=== PATIENT | male | born 1930 | race Caucasian/White ===

== ENCOUNTER 2016-10-04 07:13 | Outpatient (CLI) | payer MEDICARE, OTHER ==
[2016-06-13 09:17] VITALS: BP 165/72
[2016-10-04 08:12] LABS: eGFR (African) > 60; eGFR (Non-African) > 60
== END 2016-10-04 07:20 ==
LOC: LAB 07:13
PROVIDERS: ATTEND Family Medicine
DX: E11.9 Type 2 diabetes mellitus without complications (principal)
CPT/HCPCS: 36415; 80053; 82043; 83036

== ENCOUNTER 2017-01-20 07:40 | Outpatient (CLI) | payer MEDICARE, OTHER ==
[2016-06-13 09:17] VITALS: BP 165/72
[2017-01-20 08:51] LABS: eGFR (African) > 60; eGFR (Non-African) > 60
== END 2017-01-20 07:42 ==
LOC: LAB 07:40
PROVIDERS: ATTEND Family Medicine
DX: E11.9 Type 2 diabetes mellitus without complications (principal)
CPT/HCPCS: 36415; 80053; 80061; 83036

== ENCOUNTER 2017-02-01 08:07 | Outpatient (CLI) | payer MEDICARE, OTHER ==
[2016-06-13 09:17] VITALS: BP 165/72
[2017-02-01 08:37] LABS: BASOPHILS % 0.8 (0.0-1.5); MEAN CORPUSCULAR VOLUME 97.6 fl (80.0-100.0); MONOCYTES % 8.4 % (0.0-11.0); NEUTROPHILS # 5.6 # k/uL (1.4-7.7)
[2017-02-01 08:50] LABS: eGFR (African) > 60; eGFR (Non-African) > 60
== END 2017-02-01 08:10 ==
LOC: LAB 08:07
PROVIDERS: ATTEND Nurse Practitioner
DX: I10 Essential (primary) hypertension (principal); I25.118 Atherosclerotic heart disease of native coronary artery with other forms of angina pectoris; I48.0 Paroxysmal atrial fibrillation; I50.22 Chronic systolic (congestive) heart failure; R06.02 Shortness of breath; R07.2 Precordial pain; R60.0 Localized edema
CPT/HCPCS: 36415; 80053; 80061; 83880; 84443; 85025

== ENCOUNTER 2017-02-24 06:35 | Emergency (ER) | payer MEDICARE, OTHER ==
[2017-02-24] MEDS ORDERED: AMOXICILLIN 500 MG CAPSULE PO ONE (07:15)
[2017-02-24] MEDS ORDERED: oxyCODONE/ACETAMINOPHEN 5/325 TABLET PO ONE ×2 (07:15→07:17)
[2017-02-24] MEDS ORDERED: ONDANSETRON HCL/PF 4 MG/ 2ML VIAL ONE (07:17)
[2017-02-24] MEDS ORDERED: HALOPERIDOL LACTATE 5 MG/ML VIAL IM ONE (07:18)
[2017-02-24] MEDS: ONDANSETRON HCL/PF 4 MG/ 2ML VIAL IM ONE (07:22)
[2017-02-24] MEDS: HALOPERIDOL LACTATE 5 MG/ML VIAL IM ONE (07:22)
--- NOTE | 2017-02-24 09:30 | ED Physician Documentation ---
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 denies: weakness, numbness, neck pain, ankle swelling , leg swelling, rash EYES/ENT: none CVS/RESP: none GI/: denies: problems urinating, nausea, vomiting - PAST HX Past History: none Immunizations: referred to PCP Allergies/Adverse Reactions: Allergies Allergy/AdvReac Type Severity Reaction Status Date / Time acetaminophen Allergy Unknown Verified 02/24/17 07:30 allopurinol [From Zyloprim] Allergy Unknown Verified 02/24/17 07:30 alprazolam Allergy Unknown Verified 02/24/17 07:30 amoxicillin Allergy Unknown Verified 02/24/17 07:30 atorvastatin calcium Allergy Unknown Verified 02/24/17 07:30 [From Lipitor] azelastine Allergy Unknown Verified 02/24/17 07:30 bupropion HCl Allergy Unknown Verified 02/24/17 07:30 [From Wellbutrin] cephalexin Allergy Unknown Verified 02/24/17 07:30 clindamycin Allergy Unknown Verified 02/24/17 07:30 clonazepam Allergy Unknown Verified 02/24/17 07:30 clopidogrel bisulfate Allergy Unknown Verified 02/24/17 07:30 [From Plavix] codeine Allergy Unknown Verified 02/24/17 07:30 cortisone Allergy Unknown Verified 02/24/17 07:30 dexlansoprazole Allergy Unknown Verified 02/24/17 07:30 [From Dexilant] dextromethorphan HBr Allergy Unknown Verified 02/24/17 07:30 [From Guiatuss] diphenhydramine HCl Allergy Unknown Verified 02/24/17 07:30 [From Tylenol PM] divalproex sodium Allergy Unknown Verified 02/24/17 07:30 [From Depakote] duloxetine HCl Allergy Unknown Verified 02/24/17 07:30 [From Cymbalta] escitalopram oxalate Allergy Unknown Verified 02/24/17 07:30 [From Lexapro] esomeprazole magnesium Allergy Unknown Verified 02/24/17 07:30 [From Nexium] fenofibrate nanocrystallized Allergy Unknown Verified 02/24/17 07:30 [From Tricor] fenofibrate,micronized Allergy Unknown Verified 02/24/17 07:30 [From Tricor] fentanyl Allergy Unknown Verified 02/24/17 07:30 fluoxetine HCl [From Prozac] Allergy Unknown Verified 02/24/17 07:30 gabapentin Allergy Unknown Verified 02/24/17 07:30 guaifenesin [From Guiatuss] Allergy Unknown Verified 02/24/17 07:30 hydrochlorothiazide Allergy Unknown Verified 02/24/17 07:30 [From Dyazide] hydrocodone Allergy Unknown Verified 02/24/17 07:30 hydrocodone bitartrate Allergy Unknown Verified 02/24/17 07:30 [From Vicodin] hydromorphone Allergy Unknown Verified 02/24/17 07:30 ibuprofen Allergy Unknown Verified 02/24/17 07:30 meloxicam [From Mobic] Allergy Unknown Verified 02/24/17 07:30 meperidine HCl [From Demerol] Allergy Unknown Verified 02/24/17 07:30 metformin HCl Allergy Unknown Verified 02/24/17 07:30 [From Glucophage] metolazone Allergy Unknown Verified 02/24/17 07:30 morphine Allergy Unknown Verified 02/24/17 07:30 naproxen Allergy Unknown Verified 02/24/17 07:30 naproxen sodium [From Aleve] Allergy Unknown Verified 02/24/17 07:30 nebivolol HCl [From Bystolic] Allergy Unknown Verified 02/24/17 07:30 omeprazole Allergy Unknown Verified 02/24/17 07:30 omeprazole magnesium Allergy Unknown Verified 02/24/17 07:30 [From Prilosec] oxycodone Allergy Unknown Verified 02/24/17 07:30 oxycodone HCl [From Percocet] Allergy Unknown Verified 02/24/17 07:30 paroxetine HCl [From Paxil] Allergy Unknown Verified 02/24/17 07:30 pioglitazone HCl [From Actos] Allergy Unknown Verified 02/24/17 07:30 prasugrel HCl [From Effient] Allergy Unknown Verified 02/24/17 07:30 pravastatin sodium Allergy Unknown Verified 02/24/17 07:30 [From Pravachol] prednisone Allergy Unknown Verified 02/24/17 07:30 pregabalin [From Lyrica] Allergy Unknown Verified 02/24/17 07:30 propoxyphene HCl Allergy Unknown Verified 02/24/17 07:30 [From Darvon] pseudoephedrine HCl Allergy Unknown Verified 02/24/17 07:30 [From Guiatuss] rabeprazole sodium Allergy Unknown Verified 02/24/17 07:30 [From Aciphex] ramipril [From Altace] Allergy Unknown Verified 02/24/17 07:30 rivaroxaban [From Xarelto] Allergy Unknown Verified 02/24/17 07:30 rofecoxib [From Vioxx] Allergy Unknown Verified 02/24/17 07:30 rosiglitazone maleate Allergy Unknown Verified 02/24/17 07:30 [From Avandia] rosuvastatin calcium Allergy Unknown Verified 02/24/17 07:30 [From Crestor] salsalate Allergy Unknown Verified 02/24/17 07:30 sertraline HCl [From Zoloft] Allergy Unknown Verified 02/24/17 07:30 sibutramine HCl monohydrate Allergy Unknown Verified 02/24/17 07:30 [From Meridia] silver sulfadiazine Allergy Unknown Verified 02/24/17 07:30 [From Silvadene] synephrine Allergy Unknown Verified 02/24/17 07:30 tamsulosin Allergy Unknown Verified 02/24/17 07:30 ticagrelor Allergy Unknown Verified 02/24/17 07:30 ticlopidine HCl [From Ticlid] Allergy Unknown Verified 02/24/17 07:30 torsemide Allergy Unknown Verified 02/24/17 07:30 tramadol HCl [From Ultram] Allergy Unknown Verified 02/24/17 07:30 triamcinolone Allergy Unknown Verified 02/24/17 07:30 triamterene [From Dyazide] Allergy Unknown Verified 02/24/17 07:30 vardenafil HCl [From Levitra] Allergy Unknown Verified 02/24/17 07:30 venlafaxine HCl Allergy Unknown Verified 02/24/17 07:30 [From Effexor] warfarin Allergy Unknown Verified 02/24/17 07:30 warfarin sodium Allergy Unknown Verified 02/24/17 07:30 [From Coumadin] zanamivir Allergy Unknown Verified 02/24/17 07:30 [From Relenza Diskhaler] celecoxib [From Celebrex] Allergy Verified 02/24/17 07:30 clopidogrel Allergy Verified 02/24/17 07:30 hydralazine Allergy Verified 02/24/17 07:30 Penicillins Allergy Verified 02/24/17 07:30 propoxyphene Allergy Verified 02/24/17 07:30 Sulfa (Sulfonamide Allergy Verified 02/24/17 07:30 Antibiotics) tramadol Allergy Verified 02/24/17 07:30 valdecoxib Allergy Verified 02/24/17 07:30 atorvastatin AdvReac Muscle Pain Verified 02/24/17 07:30 metformin AdvReac Muscle Pain Verified 02/24/17 07:30 pravastatin AdvReac Hives Verified 02/24/17 07:30 simvastatin AdvReac Muscle Pain Verified 02/24/17 07:30 ticlopidine AdvReac Hives Verified 02/24/17 07:30 metolozone Allergy Severe mental Uncoded 06/08/16 17:30 confusion Home Medications: Ambulatory Orders Medication Instructions Recorded Acetaminophen [Extra Strength 500 mg PO BID 11/26/15 Non-Aspirin] Losartan Potassium 100 mg PO DAILY 11/26/15 Multivit-Min/FA/Lycopene/Lut 1 tab PO DAILY 11/26/15 [Centrum Silver Tablet] Psyllium Seed [Metamucil] 1 tsp PO BID 11/26/15 Sennosides [Senokotxtra] 58.6 mg PO BID 11/26/15 Thiamine HCl [B-1] 1 tab PO DAILY 11/26/15 Apixaban [Eliquis] 2.5 mg PO BID tablet 12/30/15 Ergocalciferol (Vitamin D2) 1,000 unit PO BID #10 tablet 12/30/15 [Vitamin D-2] Potassium Chloride 10 meq PO 6X day u2 03/28/16 Torsemide 100 mg PO BID u2 03/28/16 Cefuroxime Axetil [Ceftin] 500 mg PO BID #10 tablet 06/13/16 Isosorbide Mononitrate [Imdur] 30 mg PO PM 02/24/17 Isosorbide Mononitrate [Imdur] 60 mg PO AM 02/24/17 - SOCIAL HX Smoking History: non-smoker Alcohol Use: none Drug Use: none - FAMILY HX Family History: no significant history - VITAL SIGNS Vital Signs: Vital Signs Temp Pulse Resp BP Pulse Ox 97.1 F L 78 22 140/68 93 02/24/17 06:35 02/24/17 06:35 02/24/17 06:35 02/24/17 06:35 02/24/17 06:35 - REVIEWED ASSESSMENTS Nursing Assessment Reviewed: Yes Vitals Reviewed: Yes Progress - Results/Orders Results/Orders: x-rays of L-spine, pelvis and bilateral hips ordered - Progress Progress: pt. given 10 mg haldol im and zofran 8 mg im in er Critical Care Note - Critical Care Note Total Time (mins): 0 ED Results Lab/Radiology - Lab Results Lab Results: none ordered - Radiology Radiology Impressions: x-rays of L-spine and pelvis/hips neg for fx - Orders Orders: ED Orders Category Date Time Status BILAT HIPS 2V (W/PEL IF DONE) [RAD] Stat Exams 02/24/17 07:15 Ordered L SPINE 2 OR 3 VIEWS [RAD] Stat Exams 02/24/17 07:15 Ordered Amoxicillin [Amoxil] Med 02/24/17 07:15 Discontinued 500 mg PO NOW ONE Haloperidol Lactate [Haldol] Med 02/24/17 07:18 Discontinued 10 mg IM .STK-MED ONE Haloperidol Lactate [Haldol] Med 02/24/17 07:15 Discontinued 10 mg IM NOW ONE Ondansetron HCl/Pf [Zofran 4 mg/2 ml] Med 02/24/17 07:17 Discontinued 8 mg .ROUTE .STK-MED ONE Ondansetron HCl/Pf [Zofran 4 mg/2 ml] Med 02/24/17 07:15 Discontinued 8 mg IM NOW ONE oxyCODONE HCL/ACETAMINOPHEN [Percocet 5-325 mg Tablet] Med 02/24/17 07:17 Discontinued 1 each PO .STK-MED ONE oxyCODONE HCL/ACETAMINOPHEN [Percocet 5-325 mg Tablet] Med 02/24/17 07:15 Discontinued 1 each PO NOW ONE Fall Physical Exam - Physical Exam General Appearance: alert, moderate distress Head: non-tender, no obvious injury. No: raccoon eyes, Chapman's sign Neck: non-tender Eye: LUPILLO, EOMI, lids & conjunct. nml ENT: nml external inspection, no dental injury Resp/CVS: chest non-tender, no ecchymosis, breath sounds nml, no resp. distress , heart sounds nml Abdomen: soft, no organomegaly, normal bowel sounds, no abdominal bruit, no distension, non-tender Neuro: oriented x3, CN's nml as tested, sensation nml, motor nml, mood/affect nml, potash flaker nml, reflexes nml, potash flaker symmetrical, other (strength and sensation intact lower extremities) Skin: other (cellulitis bilateral legs) Back: no CVA tenderness, other (tenderness L5-21 bilaterally) Extremities: pelvis stable Joint: nml ROM. No: ligamentous instability Discharge Clincal Impression: Lumbar strain Qualifiers: Encounter type: initial encounter Qualified Code(s): S39.012A - Strain of muscle, fascia and tendon of lower back, initial encounter Cellulitis Qualifiers: Site of cellulitis: extremity Site of cellulitis of extremity: lower extremity Laterality: unspecified laterality Qualified Code(s): L03.119 - Cellulitis of unspecified part of limb Referrals: Tolu Serrano MD [Primary Care Provider] - 2 Days Home Medications: Ambulatory Orders Acetaminophen [Extra Strength Non-Aspirin] 500 mg PO BID 11/26/15 Losartan Potassium 100 mg PO DAILY 11/26/15 Multivit-Min/FA/Lycopene/Lut [Centrum Silver Tablet] 1 tab PO DAILY 11/26/15 Psyllium Seed [Metamucil] 1 tsp PO BID 11/26/15 Sennosides [Senokotxtra] 58.6 mg PO BID 11/26/15 Thiamine HCl [B-1] 1 tab PO DAILY 11/26/15 Apixaban [Eliquis] 2.5 mg PO BID tablet 12/30/15 Ergocalciferol (Vitamin D2) [Vitamin D-2] 1,000 unit PO BID #10 tablet 12/30/15 Potassium Chloride 10 meq PO 6X day u2 03/28/16 Torsemide 100 mg PO BID u2 03/28/16 Cefuroxime Axetil [Ceftin] 500 mg PO BID #10 tablet 06/13/16 Isosorbide Mononitrate [Imdur] 30 mg PO PM 02/24/17 Isosorbide Mononitrate [Imdur] 60 mg PO AM 02/24/17 Comments: discharged in stable condition with script for parafon forte dsc 500 mg 1 p.o. qid and doxycycline 100 mg #30 1 p.o. bid Condition: Stable Disposition: 01 HOME, SELF-CARE Decision to Admit: NO Decision Time: 09:10
[2017-02-24 10:09] VITALS: BP 130/68
--- NOTE | 2017-02-24 14:10 | Diagnostic Imaging Report ---
[place] [facility] [address] [facility].[address] [address] Report Submission Date: Feb 24, 2017 8:54:36 AM CDT Patient Study Name: MADDI MARQUEZ Date: Feb 24, 2017 7:38:52 AM CDT Modality Type: CR Gender: M Description: SPINE : 32 Institution: [facility] Physician: [place] Lumbar spine -three views CLINICAL HISTORY: Fall. Back pain. FINDINGS: Examination lumbar spine in AP, lateral and lateral coned-down views demonstrates degenerative changes with narrowing of the disc spaces at every level except L3-4. There is degenerative anterolisthesis of L4 on L5 by 5 mm. There is slight retrolisthesis of L2 on L3. Dextroscoliosis is seen with the apex at L3. Pedicles are intact and the paravertebral soft tissues are within normal limits. IMPRESSION: Spondylosis and mild dextroscoliosis. No fracture. Electronically signed on Feb 24, 2017 8:54:36 AM CDT by: Marshall WEISS
--- NOTE | 2017-02-24 14:10 | Diagnostic Imaging Report ---
[facility] [address] [facility].[address] [address] Report Submission Date: Feb 24, 2017 8:52:51 AM CDT Patient Study Name: MADDI MARQUEZ Date: Feb 24, 2017 7:34:44 AM CDT Modality Type: CR Gender: M Description: PELVIS : 32 Institution: [facility] Physician [place] Pelvis and bilateral hips CLINICAL HISTORY: Fall today. Bilateral hip pain. FINDINGS: Examination of the pelvis in AP and bilateral hips in AP and frog-leg lateral views demonstrates degenerative changes in the hips with slight narrowing of the hip joint space bilaterally. Sacroiliac joints are symmetric. Degenerative changes are seen in the visualized lower lumbar vertebrae. There is no evident fracture and no lytic or blastic lesion. 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 No fracture. Electronically signed on Feb 24, 2017 8:52:51 AM CDT by: Marshall WEISS
== END 2017-02-24 09:45 | disposition home or self-care (01) ==
LOC: ED 06:35
DX: S39.012A Strain of muscle, fascia and tendon of lower back, initial encounter (principal); X58.XXXA Exposure to other specified factors, initial encounter; Y93.9 Activity, unspecified; Y99.9 Unspecified external cause status; L03.119 Cellulitis of unspecified part of limb
CPT/HCPCS: 72100; 73521; A9270; J1630; J2405; 96372; 99283; S1016

== ENCOUNTER 2017-02-24 11:46 | Emergency (ER) | payer MEDICARE, OTHER ==
[2017-02-24] MEDS: Lidocaine 1% 5ml(IM or SUTURE)(PAIN CLINIC) IJ ONE (12:40)
[2017-02-24] MEDS: methylPREDNISolone ACETATE 80 MG/ML VIAL IM ONE ×2 (12:40→12:42)
[2017-02-24] MEDS: DEXAMETHASONE SOD PHOS 4 MG/ML VIAL IM ONE (12:40)
[2017-02-24] MEDS: DEXAMETHASONE SOD PHOS 4 MG/ML VIAL ONE (12:42)
--- NOTE | 2017-02-24 13:12 | ED Physician Documentation ---
Lower Extremity Problem - HISTORIAN Historian: patient - HPI Stated Complaint: Right Knee Pain Chief Complaint: Lower Extremity Problem Additional Information: unasble to get off toilet at home, states right knee hurts, ambulating well around home and er Location of Injury: R knee Onset: minutes (30) Timing: still present Duration: sudden-Onset Recent Injury: No Where: home Severity: moderate Quality: pain Exacerbated By: other (squatting) Relieved By: positioning Associated Symptoms: denies: chest pain, shortness of breath, rapid heart rate, fainting Further Comments: no - ROS CONST: no problems MS/SKIN/LYMPH: none CVS/RESP: none GI/: none EYES/ENT: none NERUO/PSYCH: denies: headache, difficulty walking, dizziness, anxiety, depression - PAST HX Past History: other (see nurses notes) PE Risk Factors: other (weight) Surgeries/Procedures: other (see nurses notes) Immunizations: referred to PCP Allergies/Adverse Reactions: Allergies Allergy/AdvReac Type Severity Reaction Status Date / Time acetaminophen Allergy Unknown Verified 02/24/17 07:30 allopurinol [From Zyloprim] Allergy Unknown Verified 02/24/17 07:30 alprazolam Allergy Unknown Verified 02/24/17 07:30 amoxicillin Allergy Unknown Verified 02/24/17 07:30 atorvastatin calcium Allergy Unknown Verified 02/24/17 07:30 [From Lipitor] azelastine Allergy Unknown Verified 02/24/17 07:30 bupropion HCl Allergy Unknown Verified 02/24/17 07:30 [From Wellbutrin] cephalexin Allergy Unknown Verified 02/24/17 07:30 clindamycin Allergy Unknown Verified 02/24/17 07:30 clonazepam Allergy Unknown Verified 02/24/17 07:30 clopidogrel bisulfate Allergy Unknown Verified 02/24/17 07:30 [From Plavix] codeine Allergy Unknown Verified 02/24/17 07:30 cortisone Allergy Unknown Verified 02/24/17 07:30 dexlansoprazole Allergy Unknown Verified 02/24/17 07:30 [From Dexilant] dextromethorphan HBr Allergy Unknown Verified 02/24/17 07:30 [From Guiatuss] diphenhydramine HCl Allergy Unknown Verified 02/24/17 07:30 [From Tylenol PM] divalproex sodium Allergy Unknown Verified 02/24/17 07:30 [From Depakote] duloxetine HCl Allergy Unknown Verified 02/24/17 07:30 [From Cymbalta] escitalopram oxalate Allergy Unknown Verified 02/24/17 07:30 [From Lexapro] esomeprazole magnesium Allergy Unknown Verified 02/24/17 07:30 [From Nexium] fenofibrate nanocrystallized Allergy Unknown Verified 02/24/17 07:30 [From Tricor] fenofibrate,micronized Allergy Unknown Verified 02/24/17 07:30 [From Tricor] fentanyl Allergy Unknown Verified 02/24/17 07:30 fluoxetine HCl [From Prozac] Allergy Unknown Verified 02/24/17 07:30 gabapentin Allergy Unknown Verified 02/24/17 07:30 guaifenesin [From Guiatuss] Allergy Unknown Verified 02/24/17 07:30 hydrochlorothiazide Allergy Unknown Verified 02/24/17 07:30 [From Dyazide] hydrocodone Allergy Unknown Verified 02/24/17 07:30 hydrocodone bitartrate Allergy Unknown Verified 02/24/17 07:30 [From Vicodin] hydromorphone Allergy Unknown Verified 02/24/17 07:30 ibuprofen Allergy Unknown Verified 02/24/17 07:30 meloxicam [From Mobic] Allergy Unknown Verified 02/24/17 07:30 meperidine HCl [From Demerol] Allergy Unknown Verified 02/24/17 07:30 metformin HCl Allergy Unknown Verified 02/24/17 07:30 [From Glucophage] metolazone Allergy Unknown Verified 02/24/17 07:30 morphine Allergy Unknown Verified 02/24/17 07:30 naproxen Allergy Unknown Verified 02/24/17 07:30 naproxen sodium [From Aleve] Allergy Unknown Verified 02/24/17 07:30 nebivolol HCl [From Bystolic] Allergy Unknown Verified 02/24/17 07:30 omeprazole Allergy Unknown Verified 02/24/17 07:30 omeprazole magnesium Allergy Unknown Verified 02/24/17 07:30 [From Prilosec] oxycodone Allergy Unknown Verified 02/24/17 07:30 oxycodone HCl [From Percocet] Allergy Unknown Verified 02/24/17 07:30 paroxetine HCl [From Paxil] Allergy Unknown Verified 02/24/17 07:30 pioglitazone HCl [From Actos] Allergy Unknown Verified 02/24/17 07:30 prasugrel HCl [From Effient] Allergy Unknown Verified 02/24/17 07:30 pravastatin sodium Allergy Unknown Verified 02/24/17 07:30 [From Pravachol] prednisone Allergy Unknown Verified 02/24/17 07:30 pregabalin [From Lyrica] Allergy Unknown Verified 02/24/17 07:30 propoxyphene HCl Allergy Unknown Verified 02/24/17 07:30 [From Darvon] pseudoephedrine HCl Allergy Unknown Verified 02/24/17 07:30 [From Guiatuss] rabeprazole sodium Allergy Unknown Verified 02/24/17 07:30 [From Aciphex] ramipril [From Altace] Allergy Unknown Verified 02/24/17 07:30 rivaroxaban [From Xarelto] Allergy Unknown Verified 02/24/17 07:30 rofecoxib [From Vioxx] Allergy Unknown Verified 02/24/17 07:30 rosiglitazone maleate Allergy Unknown Verified 02/24/17 07:30 [From Avandia] rosuvastatin calcium Allergy Unknown Verified 02/24/17 07:30 [From Crestor] salsalate Allergy Unknown Verified 02/24/17 07:30 sertraline HCl [From Zoloft] Allergy Unknown Verified 02/24/17 07:30 sibutramine HCl monohydrate Allergy Unknown Verified 02/24/17 07:30 [From Meridia] silver sulfadiazine Allergy Unknown Verified 02/24/17 07:30 [From Silvadene] synephrine Allergy Unknown Verified 02/24/17 07:30 tamsulosin Allergy Unknown Verified 02/24/17 07:30 ticagrelor Allergy Unknown Verified 02/24/17 07:30 ticlopidine HCl [From Ticlid] Allergy Unknown Verified 02/24/17 07:30 torsemide Allergy Unknown Verified 02/24/17 07:30 tramadol HCl [From Ultram] Allergy Unknown Verified 02/24/17 07:30 triamcinolone Allergy Unknown Verified 02/24/17 07:30 triamterene [From Dyazide] Allergy Unknown Verified 02/24/17 07:30 vardenafil HCl [From Levitra] Allergy Unknown Verified 02/24/17 07:30 venlafaxine HCl Allergy Unknown Verified 02/24/17 07:30 [From Effexor] warfarin Allergy Unknown Verified 02/24/17 07:30 warfarin sodium Allergy Unknown Verified 02/24/17 07:30 [From Coumadin] zanamivir Allergy Unknown Verified 02/24/17 07:30 [From Relenza Diskhaler] celecoxib [From Celebrex] Allergy Verified 02/24/17 07:30 clopidogrel Allergy Verified 02/24/17 07:30 hydralazine Allergy Verified 02/24/17 07:30 Penicillins Allergy Verified 02/24/17 07:30 propoxyphene Allergy Verified 02/24/17 07:30 Sulfa (Sulfonamide Allergy Verified 02/24/17 07:30 Antibiotics) tramadol Allergy Verified 02/24/17 07:30 valdecoxib Allergy Verified 02/24/17 07:30 atorvastatin AdvReac Muscle Pain Verified 02/24/17 07:30 metformin AdvReac Muscle Pain Verified 02/24/17 07:30 pravastatin AdvReac Hives Verified 02/24/17 07:30 simvastatin AdvReac Muscle Pain Verified 02/24/17 07:30 ticlopidine AdvReac Hives Verified 02/24/17 07:30 metolozone Allergy Severe mental Uncoded 06/08/16 17:30 confusion Home Medications: Ambulatory Orders Medication Instructions Recorded Acetaminophen [Extra Strength 500 mg PO BID 11/26/15 Non-Aspirin] Losartan Potassium 100 mg PO DAILY 11/26/15 Multivit-Min/FA/Lycopene/Lut 1 tab PO DAILY 11/26/15 [Centrum Silver Tablet] Psyllium Seed [Metamucil] 1 tsp PO BID 11/26/15 Sennosides [Senokotxtra] 58.6 mg PO BID 11/26/15 Thiamine HCl [B-1] 1 tab PO DAILY 11/26/15 Apixaban [Eliquis] 2.5 mg PO BID tablet 12/30/15 Ergocalciferol (Vitamin D2) 1,000 unit PO BID #10 tablet 12/30/15 [Vitamin D-2] Potassium Chloride 10 meq PO 6X day u2 03/28/16 Torsemide 100 mg PO BID u2 03/28/16 Cefuroxime Axetil [Ceftin] 500 mg PO BID #10 tablet 06/13/16 Isosorbide Mononitrate [Imdur] 30 mg PO PM 02/24/17 Isosorbide Mononitrate [Imdur] 60 mg PO AM 02/24/17 - SOCIAL HX Smoking History: non-smoker Alcohol Use: none Drug Use: none - FAMILY HX Family History: no significant history - VITAL SIGNS Vital Signs: Vital Signs Temp Pulse Resp BP Pulse Ox 97 F L 88 22 130/68 92 02/24/17 11:50 02/24/17 11:50 02/24/17 11:50 02/24/17 11:50 02/24/17 11:50 - REVIEWED ASSESSMENTS Nursing Assessment Reviewed: Yes Vitals Reviewed: Yes Progress - Results/Orders Results/Orders: no testing ordered - Progress Progress: pt. stable entire time in er Procedures Progress: knee injection performed with 40 mg depo medrol and 4 mg decadron using medial approach, sterile condition, 25 G 1 1/2 inch needle. Well tolerated, no complications Critical Care Note - Critical Care Note Total Time (mins): 0 ED Results Lab/Radiology - Lab Results Lab Results: none ordered - Radiology Radiology Impressions: none ordered - Orders Orders: ED Orders Category Date Time Status Dexamethasone Sod Phosphate [Decadron] Med 02/24/17 11:55 Discontinued 4 mg .ROUTE .STK-MED ONE Dexamethasone Sod Phosphate [Decadron] Med 02/24/17 12:00 Discontinued 4 mg IM NOW ONE Lidocaine 1% 5ml(IM or SUTURE) [Xylocaine] Med 02/24/17 12:02 Discontinued 50 mg IJ NOW ONE methylPREDNISolone ACETATE [Depo-Medrol] Med 02/24/17 12:00 Discontinued 40 mg IM NOW ONE methylPREDNISolone ACETATE [Depo-Medrol] Med 02/24/17 11:55 Discontinued 80 mg IM .STK-MED ONE Lower Extremity Problem - EXAM General Appearance: mild distress Knees: right: swelling, other (no lig. lacxity, no deformity right knee) Neuro/Tendon: normal sensation, normal motor functions, normal tendon functions EENT: eye inspection normal, ENT inspection normal, pharynx normal, no signs of dehydration, LUPILLO, no nystagmus, TM's nml RESPIRATORY: no resp distress CVS: reg rate & rhythm, heart sounds normal, equal pulses JOINT: joints nml, nml ROM VASCULAR: no vascular compromise, pulses full/equal NEURO/PSYCH: oriented X3, CN's nml as tested, motor nml, sensation nml SKIN: warm/dry, normal color BACK: normal inspection, no CVA tenderness Discharge Clincal Impression: Osteoarthritis Qualifiers: Osteoarthritis location: knee Osteoarthritis type: unspecified Laterality: right Qualified Code(s): M17.11 - Unilateral primary osteoarthritis, right knee Referrals: Tolu Serrano MD [Primary Care Provider] - 2 Days Additional Instructions: Pt. injected, medial approach right knee with 4 mg decadron and 40 mg depo medrol on 25 guage needle. Well tolerated, no complications, band aid applied. Home Medications: Ambulatory Orders Acetaminophen [Extra Strength Non-Aspirin] 500 mg PO BID 11/26/15 Losartan Potassium 100 mg PO DAILY 11/26/15 Multivit-Min/FA/Lycopene/Lut [Centrum Silver Tablet] 1 tab PO DAILY 11/26/15 Psyllium Seed [Metamucil] 1 tsp PO BID 11/26/15 Sennosides [Senokotxtra] 58.6 mg PO BID 11/26/15 Thiamine HCl [B-1] 1 tab PO DAILY 11/26/15 Apixaban [Eliquis] 2.5 mg PO BID tablet 12/30/15 Ergocalciferol (Vitamin D2) [Vitamin D-2] 1,000 unit PO BID #10 tablet 12/30/15 Potassium Chloride 10 meq PO 6X day u2 03/28/16 Torsemide 100 mg PO BID u2 03/28/16 Cefuroxime Axetil [Ceftin] 500 mg PO BID #10 tablet 06/13/16 Isosorbide Mononitrate [Imdur] 30 mg PO PM 02/24/17 Isosorbide Mononitrate [Imdur] 60 mg PO AM 02/24/17 Condition: Stable Disposition: 01 HOME, SELF-CARE Decision to Admit: NO Decision Time: 13:00
[2017-02-24 13:49] VITALS: BP 148/58
== END 2017-02-24 13:45 | disposition home or self-care (01) ==
LOC: ED 11:46
DX: M17.11 Unilateral primary osteoarthritis, right knee (principal)
CPT/HCPCS: J1040; J1100; 96372; 99283

== ENCOUNTER 2017-05-31 09:39 | Outpatient (CLI) | payer MEDICARE, OTHER ==
[2017-05-31 17:11] LABS: TOTAL PROTEIN 6.7 g/dL (6.0-8.5)
== END 2017-05-31 09:40 ==
LOC: LABRHC 09:39
PROVIDERS: ATTEND Family Medicine
DX: E11.9 Type 2 diabetes mellitus without complications (principal); I10 Essential (primary) hypertension
CPT/HCPCS: 80053; 83036

== ENCOUNTER 2017-08-30 10:02 | Outpatient (CLI) | payer MEDICARE, OTHER ==
[2017-08-30 10:18] LABS: eGFR (African) > 60; eGFR (Non-African) > 60
== END 2017-08-30 10:03 ==
LOC: LABRHC 10:02
PROVIDERS: ATTEND Family Medicine
DX: E11.9 Type 2 diabetes mellitus without complications (principal); E03.9 Hypothyroidism, unspecified
CPT/HCPCS: 80053; 83036; 84443

== ENCOUNTER 2018-02-28 16:12 | Outpatient (CLI) | payer MEDICARE, OTHER | END 2018-02-28 16:13 | LOC: LABRHC 16:12 | PROVIDERS: ATTEND Family Medicine | DX: E11.9 Type 2 diabetes mellitus without complications (principal) | CPT/HCPCS: 83036 ==

== ENCOUNTER 2018-06-15 16:22 | Outpatient (CLI) | payer MEDICARE, OTHER | END 2018-06-15 16:23 | LOC: LABRHC 16:22 | PROVIDERS: ATTEND Family Medicine | DX: L03.115 Cellulitis of right lower limb (principal) | CPT/HCPCS: 87070; 87186 ==

== ENCOUNTER 2018-08-04 11:43 | Emergency (ER) | payer MEDICARE, OTHER ==
[2018-08-04] MEDS ORDERED: ASPIRIN 81 MG CHEW TAB PO ONE (12:17)
[2018-08-04 12:30] LABS: BASOPHILS % 0.3 (0.0-1.5); EOSINOPHILS % 1.2 % (0.0-6.8); MEAN CORPUSCULAR HEMOGLOBIN 30.9 pg (28.0-34.0); MONOCYTES % 6.7 % (0.0-11.0); NEUTROPHILS # 10.1 # k/uL (1.4-7.7)
--- NOTE | 2018-08-04 12:38 | ED Physician Documentation ---
GI Bleed - HISTORIAN Historian: patient, spouse - HPI Stated Complaint: blood in stools Chief Complaint: GI Bleed Additional Information: Intro self as [employer]. Pt presents to the ED via POV with c/o blood in stools and chest pain and pain all over 5/10 "does not feel like previous heart attack". Pt reports he was constipated then 3 days ago he started having bright red and black tarry stools with 6-8 per day. Pt reports nausea, and mild dizziness. Pt on eliquis 2.5 BID, has significant cardiac Hx with CHF and Stents. Denies hx of GI bleeding. Previous record reviewed Pt PCP Dr Serrano. 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 pt denies dyspnea, syncope/near syncope, headache, visual disturbances, n/v/d, fever/chills, rash, sick contacts, dysuria, trauma, anxiety or depression. ROS Negative unless otherwise specified. - Associated Symptoms Last Bowel Movement: 08/04/18 Description of Stools: dark stools Abdominal Pain: mild, diffuse Description of Rectal Bleed: bleeding w/o stools, blood mixed w/ stool Other Related Symptoms: dizziness. denies: nausea, vomiting, back pain, fainting - ROS CONST: no problems SKIN/LYMPH: leg swelling, ankle swelling. denies: rash, swollen glands CVS/RESP: chest pain. denies: none, cough EYES/ENT: denies: sore throat, nose bleed NEURO/PSYCH: denies: headache, confusion, anxiety, depression - PAST HX Past History: PE Other History: cardiac disease, AMI, CHF, hypertension, other (hypothyroid, gout, hemorroids, PE, Sleep apnea, pneumonia, DM2, hyperlipidema) Surgeries/Procedures: cardiac stent (Cataracts bilateral. TURP. Retinal tear. hernia. ), other Allergies/Adverse Reactions: Allergies Allergy/AdvReac Type Severity Reaction Status Date / Time acetaminophen Allergy Unknown Verified 02/24/17 07:30 allopurinol [From Zyloprim] Allergy Unknown Verified 02/24/17 07:30 alprazolam Allergy Unknown Verified 02/24/17 07:30 amoxicillin Allergy Unknown Verified 02/24/17 07:30 atorvastatin calcium Allergy Unknown Verified 02/24/17 07:30 [From Lipitor] azelastine Allergy Unknown Verified 02/24/17 07:30 bupropion HCl Allergy Unknown Verified 02/24/17 07:30 [From Wellbutrin] cephalexin Allergy Unknown Verified 02/24/17 07:30 clindamycin Allergy Unknown Verified 02/24/17 07:30 clonazepam Allergy Unknown Verified 02/24/17 07:30 clopidogrel bisulfate Allergy Unknown Verified 02/24/17 07:30 [From Plavix] codeine Allergy Unknown Verified 02/24/17 07:30 cortisone Allergy Unknown Verified 02/24/17 07:30 dexlansoprazole Allergy Unknown Verified 02/24/17 07:30 [From Dexilant] dextromethorphan HBr Allergy Unknown Verified 02/24/17 07:30 [From Guiatuss] diphenhydramine HCl Allergy Unknown Verified 02/24/17 07:30 [From Tylenol PM] divalproex sodium Allergy Unknown Verified 02/24/17 07:30 [From Depakote] duloxetine HCl Allergy Unknown Verified 02/24/17 07:30 [From Cymbalta] escitalopram oxalate Allergy Unknown Verified 02/24/17 07:30 [From Lexapro] esomeprazole magnesium Allergy Unknown Verified 02/24/17 07:30 [From Nexium] fenofibrate nanocrystallized Allergy Unknown Verified 02/24/17 07:30 [From Tricor] fenofibrate,micronized Allergy Unknown Verified 02/24/17 07:30 [From Tricor] fentanyl Allergy Unknown Verified 02/24/17 07:30 fluoxetine HCl [From Prozac] Allergy Unknown Verified 02/24/17 07:30 gabapentin Allergy Unknown Verified 02/24/17 07:30 guaifenesin [From Guiatuss] Allergy Unknown Verified 02/24/17 07:30 hydrochlorothiazide Allergy Unknown Verified 02/24/17 07:30 [From Dyazide] hydrocodone Allergy Unknown Verified 02/24/17 07:30 hydrocodone bitartrate Allergy Unknown Verified 02/24/17 07:30 [From Vicodin] hydromorphone Allergy Unknown Verified 02/24/17 07:30 ibuprofen Allergy Unknown Verified 02/24/17 07:30 meloxicam [From Mobic] Allergy Unknown Verified 02/24/17 07:30 meperidine HCl [From Demerol] Allergy Unknown Verified 02/24/17 07:30 metformin HCl Allergy Unknown Verified 02/24/17 07:30 [From Glucophage] metolazone Allergy Unknown Verified 02/24/17 07:30 morphine Allergy Unknown Verified 02/24/17 07:30 naproxen Allergy Unknown Verified 02/24/17 07:30 naproxen sodium [From Aleve] Allergy Unknown Verified 02/24/17 07:30 nebivolol HCl [From Bystolic] Allergy Unknown Verified 02/24/17 07:30 omeprazole Allergy Unknown Verified 02/24/17 07:30 omeprazole magnesium Allergy Unknown Verified 02/24/17 07:30 [From Prilosec] oxycodone Allergy Unknown Verified 02/24/17 07:30 oxycodone HCl [From Percocet] Allergy Unknown Verified 02/24/17 07:30 paroxetine HCl [From Paxil] Allergy Unknown Verified 02/24/17 07:30 pioglitazone HCl [From Actos] Allergy Unknown Verified 02/24/17 07:30 prasugrel HCl [From Effient] Allergy Unknown Verified 02/24/17 07:30 pravastatin sodium Allergy Unknown Verified 02/24/17 07:30 [From Pravachol] prednisone Allergy Unknown Verified 02/24/17 07:30 pregabalin [From Lyrica] Allergy Unknown Verified 02/24/17 07:30 propoxyphene HCl Allergy Unknown Verified 02/24/17 07:30 [From Darvon] pseudoephedrine HCl Allergy Unknown Verified 02/24/17 07:30 [From Guiatuss] rabeprazole sodium Allergy Unknown Verified 02/24/17 07:30 [From Aciphex] ramipril [From Altace] Allergy Unknown Verified 02/24/17 07:30 rivaroxaban [From Xarelto] Allergy Unknown Verified 02/24/17 07:30 rofecoxib [From Vioxx] Allergy Unknown Verified 02/24/17 07:30 rosiglitazone maleate Allergy Unknown Verified 02/24/17 07:30 [From Avandia] rosuvastatin calcium Allergy Unknown Verified 02/24/17 07:30 [From Crestor] salsalate Allergy Unknown Verified 02/24/17 07:30 sertraline HCl [From Zoloft] Allergy Unknown Verified 02/24/17 07:30 sibutramine HCl monohydrate Allergy Unknown Verified 02/24/17 07:30 [From Meridia] silver sulfadiazine Allergy Unknown Verified 02/24/17 07:30 [From Silvadene] synephrine Allergy Unknown Verified 02/24/17 07:30 tamsulosin Allergy Unknown Verified 02/24/17 07:30 ticagrelor Allergy Unknown Verified 02/24/17 07:30 ticlopidine HCl [From Ticlid] Allergy Unknown Verified 02/24/17 07:30 torsemide Allergy Unknown Verified 02/24/17 07:30 tramadol HCl [From Ultram] Allergy Unknown Verified 02/24/17 07:30 triamcinolone Allergy Unknown Verified 02/24/17 07:30 triamterene [From Dyazide] Allergy Unknown Verified 02/24/17 07:30 vardenafil HCl [From Levitra] Allergy Unknown Verified 02/24/17 07:30 venlafaxine HCl Allergy Unknown Verified 02/24/17 07:30 [From Effexor] warfarin Allergy Unknown Verified 02/24/17 07:30 warfarin sodium Allergy Unknown Verified 02/24/17 07:30 [From Coumadin] zanamivir Allergy Unknown Verified 02/24/17 07:30 [From Relenza Diskhaler] celecoxib [From Celebrex] Allergy Verified 02/24/17 07:30 clopidogrel Allergy Verified 02/24/17 07:30 hydralazine Allergy Verified 02/24/17 07:30 Penicillins Allergy Verified 02/24/17 07:30 propoxyphene Allergy Verified 02/24/17 07:30 Sulfa (Sulfonamide Allergy Verified 02/24/17 07:30 Antibiotics) tramadol Allergy Verified 02/24/17 07:30 valdecoxib Allergy Verified 02/24/17 07:30 atorvastatin AdvReac Muscle Pain Verified 02/24/17 07:30 metformin AdvReac Muscle Pain Verified 02/24/17 07:30 pravastatin AdvReac Hives Verified 02/24/17 07:30 simvastatin AdvReac Muscle Pain Verified 02/24/17 07:30 ticlopidine AdvReac Hives Verified 02/24/17 07:30 metolozone Allergy Severe mental Uncoded 06/08/16 17:30 confusion Home Medications: Ambulatory Orders Medication Instructions Recorded Acetaminophen [Extra Strength 500 mg PO BID 11/26/15 Non-Aspirin] Multivit-Min/FA/Lycopen/Lutein 1 tab PO DAILY 11/26/15 [Centrum Silver Tablet] Thiamine HCl [B-1] 1 tab PO DAILY 11/26/15 Ergocalciferol (Vitamin D2) 1,000 unit PO BID #10 tablet 12/30/15 [Vitamin D-2] Potassium Chloride 10 meq PO 6X day u2 03/28/16 Isosorbide Mononitrate [Imdur] 30 mg PO PM 02/24/17 Acetaminophen [Tylenol Arthritis] 650 mg PO BID 08/04/18 Colesevelam HCl [Welchol] 352 mg PO 6XDAY 08/04/18 Levothyroxine Sodium [Synthroid] 250 mcg PO AM 08/04/18 Memantine HCl [Namenda] 5 mg PO HS 08/04/18 - SOCIAL HX Smoking History: non-smoker Alcohol Use: none Drug Use: none - FAMILY HX Family History: none - VITAL SIGNS Vital Signs: Vital Signs Temp Pulse Resp BP Pulse Ox 98 F 64 16 122/40 99 08/04/18 11:45 08/04/18 14:00 08/04/18 14:00 08/04/18 14:00 08/04/18 14:00 - REVIEWED ASSESSMENTS Nursing Assessment Reviewed: Yes Vitals Reviewed: Yes Progress - Results/Orders Results/Orders: Report Submission Date: Aug 04, 2018 1:03:29 PM [employer]PUTY ATTORNEY GENERAL Patient Study Name: MADDI MARQUEZ Date: Aug 04, 2018 12:19:00 PM [employer]PUTY ATTORNEY GENERAL Modality Type: DX Gender: M Description: CHEST : 32 Institution: [facility] Physician: KYLAH LOPEZ Portable chest Clinical history: Chest pain for 3-4 days. Findings: Examination of the chest single portable AP view demonstrates the lungs to be hypoventilated with minimal right basilar infiltrate or atelectasis. Cardiac silhouette is prominent which is felt to be related to poor inspiration. The aorta is atherosclerotic. Impression: 1. Hypoventilation. 2. Right basilar infiltrate or atelectasis. 3. Aortic atherosclerosis. Electronically signed on Aug 04, 2018 1:03:29 PM DEPUTY ATTORNEY GENERAL by: Marshall Brown - Progress Progress: 1329: updated pt on current status, pt agrees with transfer. VSS at this time. 1338: Dr Powell, hospitalist, at [facility] accepted pt for transfer via ALS ground. ED Results Lab/Radiology - Lab Results Lab Results: Lab Results 08/04/18 08/04/18 08/04/18 Unknown 12:17 12:17 WBC 13.30 K/ul H K/ul (4.00-12.00) RBC 2.69 M/ul L M/ul (3.90-5.20) Hgb 8.3 g/dL L g/dL (12.0-18.0) Hct 24.8 % L % (37.0-53.0) MCV 92.0 fl fl (80.0-100.0) MCH 30.9 pg pg (28.0-34.0) MCHC 33.5 g/dL g/dL (30.0-36.0) RDW 13.8 % % (11.3-14.3) Plt Count 266 K/mm3 K/mm3 (130-400) Neut % (Auto) 75.9 % % (39.0-79.0) Lymph % (Auto) 15.9 % L % (16.0-50.0) [place] % (Auto) 6.7 % % (0.0-11.0) Eos % (Auto) 1.2 % % (0.0-6.8) Baso % (Auto) 0.3 (0.0-1.5) Neut # (Auto) 10.1 # k/uL H # k/uL (1.4-7.7) Lymph # (Auto) 2.1 # k/uL # k/uL (0.6-4.0) [place] # (Auto) 0.9 # k/uL # k/uL (0.0-0.9) Eos # (Auto) 0.2 # k/uL # k/uL (0.0-0.6) Baso # (Auto) 0.0 # k/uL # k/uL (0.0-0.5) Sodium 138 mmol/L mmol/L (136-145) Potassium 4.4 mmol/L mmol/L (3.5-5.1) Chloride 100 mmol/L mmol/L (98-107) Carbon Dioxide 25 mmol/L mmol/L (22-30) BUN 66 mg/dL H mg/dL (9-20) Creatinine 1.10 mg/dL mg/dL (0.66-1.25) Estimated Creat Clear 123 Est GFR ( Amer) > 60 (60 - ) Est GFR (Non-Af Amer) > 60 (60 - ) Glucose 305 mg/dL H mg/dL (74-106) Calcium 8.5 mg/dL mg/dL (8.4-10.2) Total Bilirubin 0.3 mg/dL mg/dL (0.2-1.3) AST 17 U/L U/L (15-46) ALT 26 U/L U/L (13-69) Alkaline Phosphatase 94 U/L U/L (38-126) Troponin I 0.00 ng/mL L ng/mL (0.03-0.06) NT-Pro-B Natriuret Pep 958.1 pg/mL H pg/mL (15.0-450.0) Total Protein 5.6 g/dL L g/dL (6.3-8.2) Albumin 3.0 g/dL L g/dL (3.5-5.0) - Orders Orders: ED Orders Category Date Time Status Continuous EKG monitoring Q30M Care 08/04/18 12:17 Active Continuous Pulse Oximetry Q30M Care 08/04/18 12:[address] IV Lock 1T Care 08/04/18 12:17 Completed CHEST 1VIEW [RAD] Stat Exams 08/04/18 Completed BNP [NT-proBNP] Stat Lab 08/04/18 Completed CBC/PLATELET/DIFF Stat Lab 08/04/18 12:17 Completed CMP Stat Lab 08/04/18 12:17 Completed HEMOCCULT #1 Stat Lab 08/04/18 12:34 Ordered TROPONIN I (cTnI) Stat Lab 08/04/18 Completed Aspirin Med 08/04/18 12:17 Discontinued 324 mg PO NOW ONE Oxygen Daily Oxygen 08/04/18 12:30 Ordered EKG WITH COMPARISON Stat Ther 08/04/18 12:17 Ordered Abdominal Pain Physical Exam - Physical Exam General Appearance: no acute distress, other (overweight) EENT: eye inspection normal, ENT inspection normal, pharynx normal, no signs of dehydration, LUPILLO, no nystagmus, TM's nml, pale conjunctivae NECK: normal inspection. No: lymphadenopathy RESPIRATORY: no resp distress, chest non-tender, breath sounds normal. No: wheezes, rales, rhonchi CVS: reg rate & rhythm, heart sounds normal, equal pulses, no murmur, no gallop, PMI nml, no JVD, no friction rub, 24 ABDOMEN: soft, no organomegaly, normal bowel sounds, no abdominal bruit, no distension, tenderness (mild lower) BACK: normal inspection, no CVA tenderness SKIN: warm/dry (dry BLE ), other (pale) EXTREMITIES: non-tender, normal range of motion, no evidence of injury, edema NEURO: oriented X3, motor nml, sensation nml Vital Signs: Vital Signs Temp Pulse Resp BP Pulse Ox 98 F 64 16 122/40 99 08/04/18 11:45 08/04/18 14:00 08/04/18 14:00 08/04/18 14:00 08/04/18 14:00 Discharge Clincal Impression: GI hemorrhage Qualifiers: GI bleed type/associated pathology: unspecified gastrointestinal hemorrhage type Qualified Code(s): K92.2 - Gastrointestinal hemorrhage, unspecified Pneumonia Qualifiers: Pneumonia type: due to unspecified organism Laterality: right Lung location: lower lobe of lung Qualified Code(s): J18.1 - Lobar pneumonia, unspecified organism CHF (congestive heart failure) Qualifiers: Heart failure type: other Qualified Code(s): I50.9 - Heart failure, unspecified Anemia Qualifiers: Anemia type: unspecified type Qualified Code(s): D64.9 - Anemia, unspecified Referrals: Tolu Serrano MD [Primary Care Provider] - 2 Days Condition: Stable Disposition: [facility]FER [facility] Decision to Admit: NO Date of Decison to Admit: 08/04/18 Decision Time: 12:38
[2018-08-04 12:46] LABS: eGFR (Non-African) > 60
--- NOTE | 2018-08-04 14:03 | Diagnostic Imaging Report ---
KYLAH LOPEZ [facility] [address] [facility].[address] [address] Report Submission Date: Aug 04, 2018 1:03:29 PM [employer] Patient Study Name: MADDI MARQUEZ Date: Aug 04, 2018 12:19:00 PM [employer] Modality Type: DX Gender: M Description: CHEST : 32 Institution: [facility] Physician: KYLAH LOPEZ Portable chest Clinical history: Chest pain for 3-4 days. Findings: Examination of the chest single portable AP view demonstrates the lungs to be hypoventilated with minimal right basilar infiltrate or atelectasis. Cardiac silhouette is prominent which is felt to be related to poor inspiration. The aorta is atherosclerotic. Impression: 1. Hypoventilation. 2. Right basilar infiltrate or atelectasis. 3. Aortic atherosclerosis. Electronically signed on Aug 04, 2018 1:03:29 PM [employer] by: Marshall WEISS
[2018-08-04 14:09] VITALS: BP 122/40
== END 2018-08-04 14:00 | disposition short-term general hospital (02) ==
LOC: ED 11:43
DX: K92.2 Gastrointestinal hemorrhage, unspecified (principal); J18.1 Lobar pneumonia, unspecified organism; D64.9 Anemia, unspecified; I50.9 Heart failure, unspecified
CPT/HCPCS: 36415; 71045; 80053; 83880; 84484; 85025; 99285; S1016

== ENCOUNTER 2018-08-29 11:13 | Outpatient (CLI) | payer MEDICARE, OTHER ==
[2018-08-29 11:54] LABS: eGFR (Non-African) > 60
== END 2018-08-29 11:18 | disposition home or self-care (01) ==
LOC: LABRHC 11:13
PROVIDERS: ATTEND Family Medicine
DX: E11.9 Type 2 diabetes mellitus without complications (principal); I25.10 Atherosclerotic heart disease of native coronary artery without angina pectoris
CPT/HCPCS: 36415; 80053; 83036

== ENCOUNTER 2019-03-15 04:17 | Inpatient (IN) | payer MEDICARE, OTHER ==
[2019-03-15] MEDS ORDERED: 0.9 % SODIUM CHLORIDE 500 ML IV ONE (04:38)
[2019-03-15 04:48] LABS: BASOPHILS % 1.2 % (0.0-1.5)
--- NOTE | 2019-03-15 05:05 | Diagnostic Imaging Report ---
QUINCY BOOTH [facility] [id number] [facility] [address] [place], [place]. [address] Report Submission Date: Mar 15, 2019 5:04:58 AM CDT Patient Study Name: MADDI MARQUEZ Date: Mar 15, 2019 4:40:49 AM CDT Modality Type: DX Gender: M Description: CHEST 1VIEW : 32 Institution: [facility] Physician: QUINCY BOOTH Portable chest History: Short of breath Portable chest dated March 15, 2019 is compared with March 04, 2018. There is elevation of the right hemidiaphragm, unchanged. Heart size is within normal limits. Pulmonary vascularity is normal. No confluent infiltrate or pleural effusion is noted. Impression: Elevation of the right hemidiaphragm, unchanged. No active disease. Electronically signed on Mar 15, 2019 5:04:58 AM CDT by: Rita WEISS
[2019-03-15 05:47] LABS: eGFR (Non-African) 37
[2019-03-15] MEDS ORDERED: POTASSIUM CHLORIDE 20 MEQ TABLET.ER PO ONE (05:58)
--- NOTE | 2019-03-15 05:58 | ED Physician Documentation ---
General Adult - HISTORIAN Historian: patient, spouse, paramedics - HPI Stated Complaint: multiple falls Chief Complaint: General Adult Onset: days ago Timing: still present Severity: moderate Further Comments: yes (Pt is an 88 yo male who has had a significant decrease in his ability to maintain his balance over the past two weeks. EMT's were called to pt's home 3 separate times today for lift assist. On the third call, EMT's insisted that pt be taken to the hospital, as his elderly does not appear able to manage the patient, who is a large man, at home. They come to the hospital wishing to discuss the idea of correction placement with the pt's pcp, though this will be a difficult decision for them. According to EMT's, pt leans backwards while using his walker, and does not appear to know that he is leaning too far back. Pt has not injured himself in any of his falls today. Getting up from his recliner chair to go to the bathroom has become a major endeavor for both the pt and his .) - ROS CONST: weakness EYES/ENT: none CVS/RESP: none GI/: none MS/SKIN/LYMPH: leg swelling, back pain NEURO/PSYCH: other (weakness, difficulty with balance) - PAST HX Past History: other (Afib, CAD, CHF, VANESA, Obesity, hiatal hernia, OA, venous stasis ulcers of feet, DM2.) Surgeries/Procedures: other (appendectomy, TURP, carpel tunnel release) Allergies/Adverse Reactions: Allergies Allergy/AdvReac Type Severity Reaction Status Date / Time acetaminophen Allergy Unknown Verified 02/24/17 07:30 allopurinol [From Zyloprim] Allergy Unknown Verified 02/24/17 07:30 alprazolam Allergy Unknown Verified 02/24/17 07:30 amoxicillin Allergy Unknown Verified 02/24/17 07:30 atorvastatin calcium Allergy Unknown Verified 02/24/17 07:30 [From Lipitor] azelastine Allergy Unknown Verified 02/24/17 07:30 bupropion HCl Allergy Unknown Verified 02/24/17 07:30 [From Wellbutrin] cephalexin Allergy Unknown Verified 02/24/17 07:30 clindamycin Allergy Unknown Verified 02/24/17 07:30 clonazepam Allergy Unknown Verified 02/24/17 07:30 clopidogrel bisulfate Allergy Unknown Verified 02/24/17 07:30 [From Plavix] codeine Allergy Unknown Verified 02/24/17 07:30 cortisone Allergy Unknown Verified 02/24/17 07:30 dexlansoprazole Allergy Unknown Verified 02/24/17 07:30 [From Dexilant] dextromethorphan HBr Allergy Unknown Verified 02/24/17 07:30 [From Guiatuss] diphenhydramine HCl Allergy Unknown Verified 02/24/17 07:30 [From Tylenol PM] divalproex sodium Allergy Unknown Verified 02/24/17 07:30 [From Depakote] duloxetine HCl Allergy Unknown Verified 02/24/17 07:30 [From Cymbalta] escitalopram oxalate Allergy Unknown Verified 02/24/17 07:30 [From Lexapro] esomeprazole magnesium Allergy Unknown Verified 02/24/17 07:30 [From Nexium] fenofibrate nanocrystallized Allergy Unknown Verified 02/24/17 07:30 [From Tricor] fenofibrate,micronized Allergy Unknown Verified 02/24/17 07:30 [From Tricor] fentanyl Allergy Unknown Verified 02/24/17 07:30 fluoxetine HCl [From Prozac] Allergy Unknown Verified 02/24/17 07:30 gabapentin Allergy Unknown Verified 02/24/17 07:30 guaifenesin [From Guiatuss] Allergy Unknown Verified 02/24/17 07:30 hydrochlorothiazide Allergy Unknown Verified 02/24/17 07:30 [From Dyazide] hydrocodone Allergy Unknown Verified 02/24/17 07:30 hydrocodone bitartrate Allergy Unknown Verified 02/24/17 07:30 [From Vicodin] hydromorphone Allergy Unknown Verified 02/24/17 07:30 ibuprofen Allergy Unknown Verified 02/24/17 07:30 meloxicam [From Mobic] Allergy Unknown Verified 02/24/17 07:30 meperidine HCl [From Demerol] Allergy Unknown Verified 02/24/17 07:30 metformin HCl Allergy Unknown Verified 02/24/17 07:30 [From Glucophage] metolazone Allergy Unknown Verified 02/24/17 07:30 morphine Allergy Unknown Verified 02/24/17 07:30 naproxen Allergy Unknown Verified 02/24/17 07:30 naproxen sodium [From Aleve] Allergy Unknown Verified 02/24/17 07:30 nebivolol HCl [From Bystolic] Allergy Unknown Verified 02/24/17 07:30 omeprazole Allergy Unknown Verified 02/24/17 07:30 omeprazole magnesium Allergy Unknown Verified 02/24/17 07:30 [From Prilosec] oxycodone Allergy Unknown Verified 02/24/17 07:30 oxycodone HCl [From Percocet] Allergy Unknown Verified 02/24/17 07:30 paroxetine HCl [From Paxil] Allergy Unknown Verified 02/24/17 07:30 pioglitazone HCl [From Actos] Allergy Unknown Verified 02/24/17 07:30 prasugrel HCl [From Effient] Allergy Unknown Verified 02/24/17 07:30 pravastatin sodium Allergy Unknown Verified 02/24/17 07:30 [From Pravachol] prednisone Allergy Unknown Verified 02/24/17 07:30 pregabalin [From Lyrica] Allergy Unknown Verified 02/24/17 07:30 propoxyphene HCl Allergy Unknown Verified 02/24/17 07:30 [From Darvon] pseudoephedrine HCl Allergy Unknown Verified 02/24/17 07:30 [From Guiatuss] rabeprazole sodium Allergy Unknown Verified 02/24/17 07:30 [From Aciphex] ramipril [From Altace] Allergy Unknown Verified 02/24/17 07:30 rivaroxaban [From Xarelto] Allergy Unknown Verified 02/24/17 07:30 rofecoxib [From Vioxx] Allergy Unknown Verified 02/24/17 07:30 rosiglitazone maleate Allergy Unknown Verified 02/24/17 07:30 [From Avandia] rosuvastatin calcium Allergy Unknown Verified 02/24/17 07:30 [From Crestor] salsalate Allergy Unknown Verified 02/24/17 07:30 sertraline HCl [From Zoloft] Allergy Unknown Verified 02/24/17 07:30 sibutramine HCl monohydrate Allergy Unknown Verified 02/24/17 07:30 [From Meridia] silver sulfadiazine Allergy Unknown Verified 02/24/17 07:30 [From Silvadene] synephrine Allergy Unknown Verified 02/24/17 07:30 tamsulosin Allergy Unknown Verified 02/24/17 07:30 ticagrelor Allergy Unknown Verified 02/24/17 07:30 ticlopidine HCl [From Ticlid] Allergy Unknown Verified 02/24/17 07:30 torsemide Allergy Unknown Verified 02/24/17 07:30 tramadol HCl [From Ultram] Allergy Unknown Verified 02/24/17 07:30 triamcinolone Allergy Unknown Verified 02/24/17 07:30 triamterene [From Dyazide] Allergy Unknown Verified 02/24/17 07:30 vardenafil HCl [From Levitra] Allergy Unknown Verified 02/24/17 07:30 venlafaxine HCl Allergy Unknown Verified 02/24/17 07:30 [From Effexor] warfarin Allergy Unknown Verified 02/24/17 07:30 warfarin sodium Allergy Unknown Verified 02/24/17 07:30 [From Coumadin] zanamivir Allergy Unknown Verified 02/24/17 07:30 [From Relenza Diskhaler] celecoxib [From Celebrex] Allergy Verified 02/24/17 07:30 clopidogrel Allergy Verified 02/24/17 07:30 hydralazine Allergy Verified 02/24/17 07:30 Penicillins Allergy Verified 02/24/17 07:30 propoxyphene Allergy Verified 02/24/17 07:30 Sulfa (Sulfonamide Allergy Verified 02/24/17 07:30 Antibiotics) tramadol Allergy Verified 02/24/17 07:30 valdecoxib Allergy Verified 02/24/17 07:30 atorvastatin AdvReac Muscle Pain Verified 02/24/17 07:30 metformin AdvReac Muscle Pain Verified 02/24/17 07:30 pravastatin AdvReac Hives Verified 02/24/17 07:30 simvastatin AdvReac Muscle Pain Verified 02/24/17 07:30 ticlopidine AdvReac Hives Verified 02/24/17 07:30 metolozone Allergy Severe mental Uncoded 06/08/16 17:30 confusion Home Medications: Ambulatory Orders Medication Instructions Recorded Acetaminophen [Extra Strength 500 mg PO BID 11/26/15 Non-Aspirin] Multivit-Min/FA/Lycopen/Lutein 1 tab PO DAILY 11/26/15 [Centrum Silver Tablet] Thiamine HCl [B-1] 1 tab PO DAILY 11/26/15 Ergocalciferol (Vitamin D2) 1,000 unit PO BID #10 tablet 12/30/15 [Vitamin D-2] Potassium Chloride 10 meq PO 6X day u2 03/28/16 Isosorbide Mononitrate [Imdur] 30 mg PO PM 02/24/17 Acetaminophen [Tylenol Arthritis] 650 mg PO BID 08/04/18 Colesevelam HCl (Nf) [Welchol] 352 mg PO 6XDAY 08/04/18 Levothyroxine Sodium [Synthroid] 250 mcg PO AM 08/04/18 Memantine HCl [Namenda] 5 mg PO HS 08/04/18 - SOCIAL HX Smoking History: chew - FAMILY HX Family History: Yes - VITAL SIGNS Vital Signs: Vital Signs Temp Pulse Resp BP Pulse Ox 122/40 08/04/18 14:00 - REVIEWED ASSESSMENTS Nursing Assessment Reviewed: Yes Vitals Reviewed: Yes Progress - Progress Progress: KCl 40 mEq po given NS 1 L with 20 mEq/L @ 100 cc/hr Admit to Dr. Serrano. - EKG/XRAY/CT EKG: rhythm (atrial fibrillation with bradycardia, HR=52; RBBB; ST & T wave abnormalities. EKG of 08/04/18 shows very similar wave forms, but is regular and without bradycardia.) ED Results Lab/Radiology - Lab Results Lab Results: Lab Results 03/15/19 03/15/19 04:35 04:35 WBC 10.80 K/ul K/ul (4.00-12.00) RBC 4.25 M/ul M/ul (3.90-5.20) Hgb 12.3 g/dL g/dL (12.0-18.0) Hct 38.0 % % (37.0-53.0) MCV 89.0 fl fl (80.0-100.0) MCH 28.8 pg pg (28.0-34.0) MCHC 32.3 g/dL g/dL (30.0-36.0) RDW 16.4 % H % (11.3-14.3) Plt Count 248 K/mm3 K/mm3 (130-400) Neut % (Auto) 65.2 % % (39.0-79.0) Lymph % (Auto) 25.3 % % (16.0-50.0) [place] % (Auto) 5.0 % % (0.0-11.0) Eos % (Auto) 3.3 % % (0.0-6.8) Baso % (Auto) 1.2 % % (0.0-1.5) Neut # (Auto) 7.0 # k/uL # k/uL (1.4-7.7) Lymph # (Auto) 2.7 # k/uL # k/uL (0.6-4.0) [place] # (Auto) 0.5 # k/uL # k/uL (0.0-0.9) Eos # (Auto) 0.4 # k/uL # k/uL (0.0-0.6) Baso # (Auto) 0.1 # k/uL # k/uL (0.0-0.5) Sodium 135 mmol/L L mmol/L (137-145) Potassium 2.3 mmol/L L* mmol/L (3.5-5.1) Chloride 76 mmol/L L mmol/L (98-107) Carbon Dioxide 44 mmol/L H mmol/L (22-30) BUN 99 mg/dL H mg/dL (9-20) Creatinine 1.85 mg/dL H mg/dL (0.66-1.25) Est GFR ( Amer) 45 L (60 - ) Est GFR (Non-Af Amer) 37 L (60 - ) Glucose 137 mg/dL H mg/dL (74-106) Calcium 10.3 mg/dL H mg/dL (8.4-10.2) Total Bilirubin 0.8 mg/dL mg/dL (0.2-1.3) AST 76 U/L H U/L (15-46) ALT 30 U/L U/L (13-69) Alkaline Phosphatase 100 U/L U/L (38-126) Creatine Kinase 480 U/L H U/L (55-170) Total Protein 7.8 g/dL g/dL (6.3-8.2) Albumin 4.3 g/dL g/dL (3.5-5.0) - Orders Orders: ED Orders Category Date Time Status Continuous EKG monitoring Q30M Care 03/15/19 04:35 Active Continuous Pulse Oximetry Q30M Care 03/15/19 04:[address] IV Lock 1T Care 03/15/19 04:35 Active CHEST 1VIEW [RAD] Stat Exams 03/15/19 Completed CBC/PLATELET/DIFF Routine Lab 03/15/19 04:35 Completed CKMB Stat Lab 03/15/19 04:35 Received CMP Routine Lab 03/15/19 04:35 Completed CREATINE KINASE Routine Lab 03/15/19 04:35 Completed NTBNP Stat Lab 03/15/19 04:35 Received TROPONIN I Stat Lab 03/15/19 04:35 Received UA W/MICRO IF INDICATED Routine Lab 03/15/19 Uncollected 0.9 % Sodium Chloride [Normal Saline] 500 ml Med 03/15/19 04:38 Discontinued IV NOW Oxygen Daily Oxygen 03/15/19 04:45 Ordered EKG WITH COMPARISON Stat Ther 03/15/19 04:35 Ordered General Adult Physical Exam - PHYSICAL EXAM GENERAL APPEARANCE: appears lethargic, obese EENT: eye inspection normal, pharynx normal NECK: normal inspection, supple RESPIRATORY: no resp distress, other (distant breath sounds) CVS: irregularly irregular rhy, bradycardia ABDOMEN: soft, no organomegaly, decreased BS BACK: normal inspection SKIN: other (marked LE edema with stasis ulcers; back and buttock, some redness, but no significan stasis ulcers seen.) EXTREMITIES: edema (marked edema with stasis ulcers), tenderness NEURO: oriented X3, motor nml Discharge Clincal Impression: Hypokalemia, Venous stasis dermatitis of both lower extremities, Dehydration, unsafe at home, possible mild rhabdomyolysis CHF (congestive heart failure) Qualifiers: Heart failure type: unspecified Heart failure chronicity: chronic Qualified Code(s): I50.9 - Heart failure, unspecified Referrals: Tolu Serrano MD [Primary Care Provider] - 2 Days Condition: Fair Disposition: ADMITTED INPATIENT Decision to Admit: [id number] Decision Time: 07:03
[2019-03-15] MEDS ORDERED: POTASSIUM CHLORIDE 40 MEQ/NS 1,000 ML IV ONE ×2 (07:04→17:29)
[2019-03-15] MEDS: POTASSIUM CHLORIDE 40 MEQ/NS 1,000 ML IV SCH ×2 (07:17→17:37)
[2019-03-15] MEDS ORDERED: metOLazone 2.5 MG TABLET PO ONE (08:42)
[2019-03-15] MEDS ORDERED: metOLazone 2.5 MG TABLET PO SCH (09:00)
[2019-03-15 09:13] VITALS: BMI 45.6
[2019-03-15] MEDS: GABAPENTIN 100 MG CAPSULE PO SCH ×2 (09:30→21:22)
[2019-03-15] MEDS: APIXABAN 5 MG TABLET PO SCH ×2 (09:30→21:20)
[2019-03-15] MEDS: ISOSORBIDE DINITRATE 20 MG TABLET PO SCH ×2 (09:30→21:21)
[2019-03-15] MEDS ORDERED: 0.9 % SODIUM CHLORIDE 1,000 ML IV SCH (10:45)
--- NOTE | 2019-03-15 10:48 | History and Physical Report ---
History of Present Illnes - History of Present Illness Reason for Visit: generalized weakness. History of Present Illness: 88yo white male home has history of CAD, CHF, HTN, DM type2, chronic venous stasis ulcer, VANESA, dementia, and generalized OA. Patient is staying at home with his spouse who helps with all of his daily living cares. She states that his dementia is getting worse. He seems to have less of a sense of awareness about what is going on around him and is more confused. This has been gradual over years but over the last 2 weeks seems to have accelerated. Yesterday had had 3 episodes where he fell and was not able to get back up. Patient came to the ED and was found to be dehydrated and has hypokalemia. Patient admitted for further evaluation and treatment. Blood sugars at home have been 57-154 in AM and 200-344 in PM. Patient does have some mild hypoglycemic symptoms with BS getting into the 50s. Patient's BS yesterday was >150 all day however. He denies any chest pain pressure, has some SOB but it is stable. No fever or chills noted. 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 Endocrine: Diabetes (type 2) Dermatology: Other (severe venous stasis) - Past Surgical History Past Surgical History: Appendectomy, TURP, Other (carpal tunnel release) - Past Social History Smoke: No Occupation: retired Alcohol: None Drugs: None Lives: With Family - Health Maintenance Health Maintenance: Cholesterol, Influenza Vaccine, Pneumococcal Vaccine Pneumonia Vaccine: Yes Resuscitation Status: Resusciation Status Resuscitation Status Do Not Resuscitate - Unable to Obtain History Unable to Obtain: Yes Review of Systems - Review of Systems Constitutional: negative: Fever, Chills, Sweats Eyes: negative: pain ENT: negative: Ear Pain, Ear Discharge, Nose Pain, Nose Discharge, Nose Congestion, Mouth Pain, Mouth Swelling Respiratory: SOB with Excertion. negative: Cough, Dry, Shortness of Breath, Hemoptysis, Pleuritic Pain Cardiovascular: negative: Chest Pain, Palpitations, Orthopnea Gastrointestinal: negative: Nausea, Vomiting, Abdominal Pain, Diarrhea, Constipation, Melena, Hematochezia Genitourinary: negative: Dysuria, Frequency, Incontinence Musculoskeletal: Back Pain, Leg Pain. negative: Shoulder Pain Skin: negative: Rash Neurological: negative: Weakness, Numbness, Incoordination - Medications/Allergies Allergies/Adverse Reactions: Allergies Allergy/AdvReac Type Severity Reaction Status Date / Time acetaminophen Allergy Unknown Verified 02/24/17 07:30 allopurinol [From Zyloprim] Allergy Unknown Verified 02/24/17 07:30 alprazolam Allergy Unknown Verified 02/24/17 07:30 amoxicillin Allergy Unknown Verified 02/24/17 07:30 atorvastatin calcium Allergy Unknown Verified 02/24/17 07:30 [From Lipitor] azelastine Allergy Unknown Verified 02/24/17 07:30 bupropion HCl Allergy Unknown Verified 02/24/17 07:30 [From Wellbutrin] cephalexin Allergy Unknown Verified 02/24/17 07:30 clindamycin Allergy Unknown Verified 02/24/17 07:30 clonazepam Allergy Unknown Verified 02/24/17 07:30 clopidogrel bisulfate Allergy Unknown Verified 02/24/17 07:30 [From Plavix] codeine Allergy Unknown Verified 02/24/17 07:30 cortisone Allergy Unknown Verified 02/24/17 07:30 dexlansoprazole Allergy Unknown Verified 02/24/17 07:30 [From Dexilant] dextromethorphan HBr Allergy Unknown Verified 02/24/17 07:30 [From Guiatuss] diphenhydramine HCl Allergy Unknown Verified 02/24/17 07:30 [From Tylenol PM] divalproex sodium Allergy Unknown Verified 02/24/17 07:30 [From Depakote] duloxetine HCl Allergy Unknown Verified 02/24/17 07:30 [From Cymbalta] escitalopram oxalate Allergy Unknown Verified 02/24/17 07:30 [From Lexapro] esomeprazole magnesium Allergy Unknown Verified 02/24/17 07:30 [From Nexium] fenofibrate nanocrystallized Allergy Unknown Verified 02/24/17 07:30 [From Tricor] fenofibrate,micronized Allergy Unknown Verified 02/24/17 07:30 [From Tricor] fentanyl Allergy Unknown Verified 02/24/17 07:30 fluoxetine HCl [From Prozac] Allergy Unknown Verified 02/24/17 07:30 gabapentin Allergy Unknown Verified 02/24/17 07:30 guaifenesin [From Guiatuss] Allergy Unknown Verified 02/24/17 07:30 hydrochlorothiazide Allergy Unknown Verified 02/24/17 07:30 [From Dyazide] hydrocodone Allergy Unknown Verified 02/24/17 07:30 hydrocodone bitartrate Allergy Unknown Verified 02/24/17 07:30 [From Vicodin] hydromorphone Allergy Unknown Verified 02/24/17 07:30 ibuprofen Allergy Unknown Verified 02/24/17 07:30 meloxicam [From Mobic] Allergy Unknown Verified 02/24/17 07:30 meperidine HCl [From Demerol] Allergy Unknown Verified 02/24/17 07:30 metformin HCl Allergy Unknown Verified 02/24/17 07:30 [From Glucophage] metolazone Allergy Unknown Verified 02/24/17 07:30 morphine Allergy Unknown Verified 02/24/17 07:30 naproxen Allergy Unknown Verified 02/24/17 07:30 naproxen sodium [From Aleve] Allergy Unknown Verified 02/24/17 07:30 nebivolol HCl [From Bystolic] Allergy Unknown Verified 02/24/17 07:30 omeprazole Allergy Unknown Verified 02/24/17 07:30 omeprazole magnesium Allergy Unknown Verified 02/24/17 07:30 [From Prilosec] oxycodone Allergy Unknown Verified 02/24/17 07:30 oxycodone HCl [From Percocet] Allergy Unknown Verified 02/24/17 07:30 paroxetine HCl [From Paxil] Allergy Unknown Verified 02/24/17 07:30 pioglitazone HCl [From Actos] Allergy Unknown Verified 02/24/17 07:30 prasugrel HCl [From Effient] Allergy Unknown Verified 02/24/17 07:30 pravastatin sodium Allergy Unknown Verified 02/24/17 07:30 [From Pravachol] prednisone Allergy Unknown Verified 02/24/17 07:30 pregabalin [From Lyrica] Allergy Unknown Verified 02/24/17 07:30 propoxyphene HCl Allergy Unknown Verified 02/24/17 07:30 [From Darvon] pseudoephedrine HCl Allergy Unknown Verified 02/24/17 07:30 [From Guiatuss] rabeprazole sodium Allergy Unknown Verified 02/24/17 07:30 [From Aciphex] ramipril [From Altace] Allergy Unknown Verified 02/24/17 07:30 rivaroxaban [From Xarelto] Allergy Unknown Verified 02/24/17 07:30 rofecoxib [From Vioxx] Allergy Unknown Verified 02/24/17 07:30 rosiglitazone maleate Allergy Unknown Verified 02/24/17 07:30 [From Avandia] rosuvastatin calcium Allergy Unknown Verified 02/24/17 07:30 [From Crestor] salsalate Allergy Unknown Verified 02/24/17 07:30 sertraline HCl [From Zoloft] Allergy Unknown Verified 02/24/17 07:30 sibutramine HCl monohydrate Allergy Unknown Verified 02/24/17 07:30 [From Meridia] silver sulfadiazine Allergy Unknown Verified 02/24/17 07:30 [From Silvadene] synephrine Allergy Unknown Verified 02/24/17 07:30 tamsulosin Allergy Unknown Verified 02/24/17 07:30 ticagrelor Allergy Unknown Verified 02/24/17 07:30 ticlopidine HCl [From Ticlid] Allergy Unknown Verified 02/24/17 07:30 torsemide Allergy Unknown Verified 02/24/17 07:30 tramadol HCl [From Ultram] Allergy Unknown Verified 02/24/17 07:30 triamcinolone Allergy Unknown Verified 02/24/17 07:30 triamterene [From Dyazide] Allergy Unknown Verified 02/24/17 07:30 vardenafil HCl [From Levitra] Allergy Unknown Verified 02/24/17 07:30 venlafaxine HCl Allergy Unknown Verified 02/24/17 07:30 [From Effexor] warfarin Allergy Unknown Verified 02/24/17 07:30 warfarin sodium Allergy Unknown Verified 02/24/17 07:30 [From Coumadin] zanamivir Allergy Unknown Verified 02/24/17 07:30 [From Relenza Diskhaler] celecoxib [From Celebrex] Allergy Verified 02/24/17 07:30 clopidogrel Allergy Verified 02/24/17 07:30 hydralazine Allergy Verified 02/24/17 07:30 Penicillins Allergy Verified 02/24/17 07:30 propoxyphene Allergy Verified 02/24/17 07:30 Sulfa (Sulfonamide Allergy Verified 02/24/17 07:30 Antibiotics) tramadol Allergy Verified 02/24/17 07:30 valdecoxib Allergy Verified 02/24/17 07:30 atorvastatin AdvReac Muscle Pain Verified 02/24/17 07:30 metformin AdvReac Muscle Pain Verified 02/24/17 07:30 pravastatin AdvReac Hives Verified 02/24/17 07:30 simvastatin AdvReac Muscle Pain Verified 02/24/17 07:30 ticlopidine AdvReac Hives Verified 02/24/17 07:30 metolozone Allergy Severe mental Uncoded 06/08/16 17:30 confusion Current Inpatient Medications: Current Inpatient Medications Apixaban (Eliquis) 2.5 mg PO BID [facility] Colesevelam HCl (Welchol (Nf)) 625 mg PO Q4 [facility] Gabapentin (Neurontin) 100 mg PO BID [facility] Potassium Chloride/Sodium Chloride (Kcl 40 Meq In Ns 1000 Ml) 1,000 mls @ 100 mls/hr IV Q10H [facility] Last Admin: 03/15/19 07:17 Dose: 100 mls/hr Insulin Glargine (Basaglar Kwik-Pen) 60 unit SQ HS [facility] Isosorbide Dinitrate (Isordil) 60 mg PO BID [facility] Levothyroxine Sodium (Synthroid) 250 mcg PO 0700 [facility] Losartan Potassium (Cozaar) 100 mg PO HS [facility] Memantine (Namenda) 5 mg PO HS [facility] Metolazone (Zaroxolyn) 5 mg PO DAILY [facility] Miscellaneous (Chem Sticks) 1 each CHEMX3 [facility] Exam - Exam Vital Signs: Vital Signs (72 hours) 03/15/19 03/15/19 03/15/19 04:23 08:19 09:06 Temperature 96.7 F L 96.7 F L Pulse Rate [ 50 L 53 L 53 L Left Radial] Respiratory 18 20 20 Rate Blood Pressure 144/55 133/50 133/50 [Left Arm] Blood Pressure 149/54 [Right Arm] O2 Sat by Pulse 100 97 97 Oximetry General: Alert, Oriented to Person, Oriented to Place, Cooperative HEENT: Atraumatic, PERRLA, EOMI, Mouth Mucous membr. moist/[place], Nose Mucous membr. moist/[place] Neck: Normal Range of Motion Lungs: Clear to auscultation, Normal air movement, Speaks full Sentences Cardiovascular: Regular rate, Normal S1, Normal S2, No murmurs Abdomen: Normal bowel sounds, Soft, No tenderness, No hepatospenomegaly, No masses Integumentary: Normal, [place], Warm, Dry Extremities: No clubbing, No cyanosis, Other (marked venous stasis ulcers) Neurological: Normal gait, Normal speech, Strength Equal Bilat, Normal tone, Sensation intact, Cranial nerves 3-12 NL, Reflexes 2+ Psych/Mental Status: Mental status NL, Appropriate Affect. No: Mood NL (d epressed), Intact Judgment (confused) - Laboratory Results Laboratory Results: Laboratory Results 03/15/19 03/15/19 03/15/19 04:35 04:35 04:35 WBC 10.80 RBC 4.25 Hgb 12.3 Hct 38.0 MCV 89.0 MCH 28.8 MCHC 32.3 RDW 16.4 H Plt Count 248 Neut % (Auto) 65.2 Lymph % (Auto) 25.3 [place] % (Auto) 5.0 Eos % (Auto) 3.3 Baso % (Auto) 1.2 Neut # (Auto) 7.0 Lymph # (Auto) 2.7 [place] # (Auto) 0.5 Eos # (Auto) 0.4 Baso # (Auto) 0.1 Sodium 135 L Potassium 2.3 L* Chloride 76 L Carbon Dioxide 44 H BUN 99 H Creatinine 1.85 H Est GFR ( Amer) 45 L Est GFR (Non-Af Amer) 37 L Glucose 137 H Calcium 10.3 H Total Bilirubin 0.8 AST 76 H ALT 30 Alkaline Phosphatase 100 Creatine Kinase 480 H CK-MB (CK-2) 4.7 Troponin I 0.050 H NT-Pro-B Natriuret Pep 686.2 H Total Protein 7.8 Albumin 4.3 03/15/19 09:05 WBC RBC Hgb Hct MCV MCH MCHC RDW Plt Count Neut % (Auto) Lymph % (Auto) [place] % (Auto) Eos % (Auto) Baso % (Auto) Neut # (Auto) Lymph # (Auto) [place] # (Auto) Eos # (Auto) Baso # (Auto) Sodium Potassium Chloride Carbon Dioxide BUN Creatinine Est GFR ( Amer) Est GFR (Non-Af Amer) Glucose Calcium Total Bilirubin AST ALT Alkaline Phosphatase Creatine Kinase CK-MB (CK-2) Troponin I 0.042 H NT-Pro-B Natriuret Pep Total Protein Albumin Assessment/Plan - Assessment/Plan (1) Hypokalemia Status: Acute Current Visit: No Assessment: Patient has been started on replacement therapy (2) Dehydration Status: Acute Current Visit: No Assessment: Will start with slow rehydration due to history of CHF (3) Weakness Status: Acute Current Visit: No Assessment: Will get PT and OT, patient has had several falls (3 within 24 hours) (4) Hypothyroidism Status: Chronic Current Visit: No Qualifiers: 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 Will get A1c. (7) Essential hypertension Status: Chronic Current Visit: No Assessment: continue home medication (8) Obstructive sleep apnea Status: Chronic Current Visit: No Assessment: continue with CPAP VTE Assessment - RISK FACTOR SCORE VTE RISK FACTOR SCORES: AGE OVER 60 YEARS, OBESITY, ANTICIPATED BED CONFINEMENT OR IMMOBILIZATION > 24 HOURS - RISK VTE HIGH RISK: SCORE OF 3-4 (RISK PROXIMAL DVT 4-8%) PROPHYLAXIS NEEDED (on eliquis)
[2019-03-15] MEDS: COLESEVELAM HCL 625 MG PO SCH ×4 (11:12→21:22)
[2019-03-15] MEDS ORDERED: INSULIN REGULAR, HUMAN 100 UNIT/ML 10ML VIAL SQ SCH (12:00)
[2019-03-15] MEDS: INSULIN REGULAR, HUMAN 100 UNIT/ML 10ML VIAL SQ SCH ×2 (14:49→17:32)
[2019-03-15 15:40] LABS: APPEARANCE,URINE CLEAR (CLEAR); COLOR,URINE YELLOW (YELLOW); OCCULT BLOOD,URINE NEGATIVE (NEGATIVE); PH URINE 6.5 (5.0 - 8.0); UROBILINOGEN URINE 0.2 Eu (0.2-1.0)
[2019-03-15] MEDS ORDERED: ISOSORBIDE DINITRATE 10 MG TABLET ONE (19:42)
[2019-03-15] MEDS: LOSARTAN POTASSIUM 50 MG TABLET PO SCH (21:20)
[2019-03-15] MEDS: MEMANTINE HCL 10 MG TABLET PO SCH (21:22)
[2019-03-15] MEDS: INSULIN GLARGINE,HUM.REC.ANLOG 100 UNIT/ML PEN.INJCTR SQ SCH (21:58)
[2019-03-16] MEDS: COLESEVELAM HCL 625 MG PO SCH ×5 (01:33→17:09)
[2019-03-16] MEDS ORDERED: 0.9 % SODIUM CHLORIDE 1,000 ML IV ONE (03:57)
[2019-03-16] MEDS ORDERED: POTASSIUM CHLORIDE 40 MEQ/NS 1,000 ML IV ONE ×2 (03:59→14:39)
[2019-03-16] MEDS: POTASSIUM CHLORIDE 40 MEQ/NS 1,000 ML IV SCH ×2 (04:02→14:40)
[2019-03-16] MEDS: LEVOTHYROXINE SODIUM 50 MCG TABLET PO SCH (06:12)
[2019-03-16 06:23] LABS: BASOPHILS % 0.4 % (0.0-1.5)
[2019-03-16 06:27] LABS: eGFR (Non-African) 51
[2019-03-16] MEDS: INSULIN REGULAR, HUMAN 100 UNIT/ML 10ML VIAL SQ SCH ×3 (07:28→17:11)
[2019-03-16] MEDS ORDERED: POTASSIUM CHLORIDE 20 MEQ TABLET.ER PO SCH (09:00)
[2019-03-16] MEDS ORDERED: ISOSORBIDE MONONITRATE 30 MG TAB.ER.24H PO ONE (10:45)
[2019-03-16] MEDS: GABAPENTIN 100 MG CAPSULE PO SCH ×2 (10:49→23:45)
[2019-03-16] MEDS: APIXABAN 5 MG TABLET PO SCH ×2 (10:49→23:45)
[2019-03-16] MEDS: ISOSORBIDE DINITRATE 20 MG TABLET PO SCH ×2 (10:50→23:45)
--- NOTE | 2019-03-16 15:57 | Inpatient Progress Note ---
Subjective - Required Recertification Statement I anticipate X number of days because-include discharge plan: 2 days - Review of Systems Subjective: Patient states that he is not felling much better today. No specific complaints just does not feel good. Still having some urinary frequency of small amounts. No fever or chills noted. No chest pain noted. General: Denies: Chills Pulmonary: Denies: Dyspnea, Cough Objective - Exam Vitals and I&O: Vital Signs Temp 97.3 F L 03/16/19 14:00 Pulse 55 L 03/16/19 14:00 Resp 20 03/16/19 14:00 BP 132/81 03/16/19 14:00 Pulse Ox 96 03/16/19 14:00 Intake & Output 03/15/19 03/16/19 03/16/19 23:59 11:59 23:59 Intake Total 360 240 120 Output Total 360 250 150 Balance 0 -10 -30 Intake: Oral 360 240 120 Output: Urine 360 250 150 Other: Voiding Method Diaper Urinal # Voids 5 1 3 # Bowel Movements 0 0 General: Alert, Oriented to Person, Oriented to Place, Cooperative, Mild distress. No: Oriented to Time Neck: Supple Lungs: Clear to auscultation, Normal air movement, Speaks full Sentences Cardiovascular: Irregularly Irregular. No: No murmurs Extremities: No clubbing, Other (venous stsis changes. Pedal edema noted.) Neurological: Normal speech, Normal tone, Generalized Weakness Psych/Mental Status: Mental status NL, Mood NL, Appropriate Affect - Results Results: Laboratory Results WBC 10.20 K/ul (4.00-12.00) 03/16/19 05:10 RBC 3.96 M/ul (3.90-5.20) 03/16/19 05:10 Hgb 11.3 g/dL (12.0-18.0) L 03/16/19 05:10 Hct 34.8 % (37.0-53.0) L 03/16/19 05:10 MCV 88.0 fl (80.0-100.0) 03/16/19 05:10 MCH 28.6 pg (28.0-34.0) 03/16/19 05:10 MCHC 32.5 g/dL (30.0-36.0) 03/16/19 05:10 RDW 16.5 % (11.3-14.3) H 03/16/19 05:10 Plt Count 297 K/mm3 (130-400) 03/16/19 05:10 Neut % (Auto) 67.9 % (39.0-79.0) 03/16/19 05:10 Lymph % (Auto) 22.8 % (16.0-50.0) 03/16/19 05:10 [place] % (Auto) 6.7 % (0.0-11.0) 03/16/19 05:10 Eos % (Auto) 2.2 % (0.0-6.8) 03/16/19 05:10 Baso % (Auto) 0.4 % (0.0-1.5) 03/16/19 05:10 Neut # (Auto) 7.0 # k/uL (1.4-7.7) 03/16/19 05:10 Lymph # (Auto) 2.3 # k/uL (0.6-4.0) 03/16/19 05:10 [place] # (Auto) 0.7 # k/uL (0.0-0.9) 03/16/19 05:10 Eos # (Auto) 0.2 # k/uL (0.0-0.6) 03/16/19 05:10 Baso # (Auto) 0.0 # k/uL (0.0-0.5) 03/16/19 05:10 Sodium 138 mmol/L (137-145) 03/16/19 05:10 Potassium 2.5 mmol/L (3.5-5.1) L* 03/16/19 05:10 Chloride 87 mmol/L (98-107) L 03/16/19 05:10 Carbon Dioxide 42 mmol/L (22-30) H 03/16/19 05:10 BUN 82 mg/dL (9-20) H 03/16/19 05:10 Creatinine 1.39 mg/dL (0.66-1.25) H 03/16/19 05:10 Estimated Creat Clear 72 03/16/19 05:10 Est GFR ( Amer) > 60 (60-) 03/16/19 05:10 Est GFR (Non-Af Amer) 51 (60-) L 03/16/19 05:10 Glucose 83 mg/dL (74-106) 03/16/19 05:10 Calcium 9.7 mg/dL (8.4-10.2) 03/16/19 05:10 Total Bilirubin 0.9 mg/dL (0.2-1.3) 03/16/19 05:10 AST 66 U/L (15-46) H 03/16/19 05:10 ALT 34 U/L (13-69) 03/16/19 05:10 Alkaline Phosphatase 82 U/L (38-126) 03/16/19 05:10 Creatine Kinase 480 U/L (55-170) H 03/15/19 04:35 CK-MB (CK-2) 4.7 ng/mL (0.0-5.6) 03/15/19 04:35 Troponin I 0.039 ng/mL (0.012-0.034) H 03/15/19 21:20 NT-Pro-B Natriuret Pep 686.2 pg/mL (11.1-450.0) H 03/15/19 04:35 Total Protein 6.7 g/dL (6.3-8.2) 03/16/19 05:10 Albumin 3.6 g/dL (3.5-5.0) 03/16/19 05:10 Urine Color Yellow (YELLOW) 03/15/19 06:42 Urine Appearance Clear (CLEAR) 03/15/19 06:42 Urine pH 6.5 (5.0 - 8.0) 03/15/19 06:42 Ur Specific [place] 1.015 (1.010-1.030) 03/15/19 06:42 Urine Protein Negative mg/dL (NEGATIVE) 03/15/19 06:42 Urine Ketones Negative mg/dL (NEGATIVE) 03/15/19 06:42 Urine Occult Blood Negative (NEGATIVE) 03/15/19 06:42 Urine Nitrite Negative (NEGATIVE) 03/15/19 06:42 Urine Bilirubin Negative (NEGATIVE) 03/15/19 06:42 Urine Urobilinogen 0.2 Eu (0.2-1.0) 03/15/19 06:42 Ur Leukocyte Esterase Negative (NEGATIVE) 03/15/19 06:42 Urine Glucose Negative mg/dL (NEGATIVE) 03/15/19 06:42 Assessment/Plan - Assessment/Plan (1) Hypokalemia Status: Acute Current Visit: No Assessment: Potassium still low at 2.5, improved slightly from yesterday.Will increase oral K intake. Recheck in AM. (2) Dehydration Status: Acute Current Visit: No Assessment: BUN and Creatinine are improved but patient is showing more edema, will stop IV fluids for now. (3) Weakness Status: Acute Current Visit: No Assessment: This seems to have been progressive. (4) Coronary artery disease Status: Chronic Current Visit: No Qualifiers: Coronary Disease-Associated Artery/Lesion type: [place] artery [place] vs. transplanted heart: [place] heart Associated angina: without angina Qualified Code(s): I25.10 - Atherosclerotic heart disease of [place] coronary artery without angina pectoris Comment: will monitor Assessment: stable no chest pain noted (5) Diabetes type 2, controlled Status: Chronic Current Visit: No Qualifiers: Diabetes mellitus alf insulin use: without alf use Diabetes mellitus complication status: with circulatory complication Assessment: stable blood sugars improved some, no hypoglycemic episodes (6) Essential hypertension Status: Chronic Current Visit: No (7) Obstructive sleep apnea Status: Chronic Current Visit: No Assessment: stable
[2019-03-16] MEDS ORDERED: POTASSIUM CHLORIDE 20 MEQ TABLET.ER ONE (22:30)
[2019-03-16] MEDS: LOSARTAN POTASSIUM 50 MG TABLET PO SCH (23:45)
[2019-03-16] MEDS: POTASSIUM CHLORIDE 20 MEQ TABLET.ER PO SCH (23:45)
[2019-03-16] MEDS: MEMANTINE HCL 10 MG TABLET PO SCH (23:45)
[2019-03-17 06:32] LABS: eGFR (Non-African) 58
[2019-03-17] MEDS: LEVOTHYROXINE SODIUM 50 MCG TABLET PO SCH (07:10)
[2019-03-17] MEDS: COLESEVELAM HCL 625 MG PO SCH ×6 (08:00→22:03)
[2019-03-17] MEDS: INSULIN GLARGINE,HUM.REC.ANLOG 100 UNIT/ML PEN.INJCTR SQ SCH ×2 (08:03→22:03)
[2019-03-17] MEDS: INSULIN REGULAR, HUMAN 100 UNIT/ML 10ML VIAL SQ SCH ×3 (08:55→17:32)
[2019-03-17] MEDS ORDERED: POTASSIUM CHLORIDE 20 MEQ TABLET.ER ONE ×2 (09:45→17:02)
[2019-03-17] MEDS: APIXABAN 5 MG TABLET PO SCH ×2 (09:55→22:02)
[2019-03-17] MEDS: ISOSORBIDE DINITRATE 20 MG TABLET PO SCH ×2 (09:58→22:02)
[2019-03-17] MEDS: POTASSIUM CHLORIDE 20 MEQ TABLET.ER PO SCH ×3 (09:58→17:24)
[2019-03-17] MEDS: GABAPENTIN 100 MG CAPSULE PO SCH ×2 (09:58→22:02)
[2019-03-17] MEDS: MEMANTINE HCL 10 MG TABLET PO SCH (22:03)
[2019-03-17] MEDS: LOSARTAN POTASSIUM 50 MG TABLET PO SCH (22:03)
[2019-03-18] MEDS: COLESEVELAM HCL 625 MG PO SCH ×4 (00:42→12:46)
[2019-03-18] MEDS: LEVOTHYROXINE SODIUM 50 MCG TABLET PO SCH (06:04)
[2019-03-18] MEDS: INSULIN REGULAR, HUMAN 100 UNIT/ML 10ML VIAL SQ SCH ×3 (07:51→17:05)
--- NOTE | 2019-03-18 08:15 | Inpatient Progress Note ---
Subjective - Required Recertification Statement I anticipate X number of days because-include discharge plan: 3 days - Review of Systems Events since last encounter: Patient stated he is still feeling data does not have much energy. Patient stated is still difficult for him to get up and move. Patient denies any increasing shortness of breath dyspnea. Diabetes mellitus has been stable. Subjective: Patient states that he is not felling much better today. No specific complaints just does not feel good. Still having some urinary frequency of small amounts. No fever or chills noted. No chest pain noted. Cardiovascular: Denies: Chest Pain Gastrointestinal: Denies: Nausea, Vomiting, Abdominal Pain, Diarrhea, Constipation Objective - Exam Vitals and I&O: Vital Signs Temp 98.4 F 03/18/19 05:40 Pulse 58 L 03/18/19 06:00 Resp 20 03/18/19 06:00 BP 147/53 03/18/19 05:40 Pulse Ox 96 03/18/19 06:00 Intake & Output 03/17/19 03/17/19 03/18/19 11:59 23:59 11:59 Intake Total 620 490 Output Total 1700 1450 500 Balance -1080 -960 -500 Intake: IV 400 Left Upper arm 400 Oral 220 490 Output: Urine 1700 1450 500 Other: Voiding Method Indwelling Catheter Indwelling Catheter Indwelling Catheter # Voids 0 # Bowel Movements 0 0 General: Alert, Oriented to Person, Oriented to Place, Oriented to Time Neck: Supple, No JVD Lungs: Clear to auscultation, Normal air movement, Speaks full Sentences. No: Wheezes, Rales, Rhonchi Cardiovascular: Regular rate, Normal S1, Normal S2, No murmurs Extremities: No clubbing, Other (marked lymphedema) Skin: Normal, [place] Neurological: Normal speech, Strength Equal Bilat (weak). No: Normal gait - Results Results: Laboratory Results WBC 10.20 K/ul (4.00-12.00) 03/16/19 05:10 RBC 3.96 M/ul (3.90-5.20) 03/16/19 05:10 Hgb 11.3 g/dL (12.0-18.0) L 03/16/19 05:10 Hct 34.8 % (37.0-53.0) L 03/16/19 05:10 MCV 88.0 fl (80.0-100.0) 03/16/19 05:10 MCH 28.6 pg (28.0-34.0) 03/16/19 05:10 MCHC 32.5 g/dL (30.0-36.0) 03/16/19 05:10 RDW 16.5 % (11.3-14.3) H 03/16/19 05:10 Plt Count 297 K/mm3 (130-400) 03/16/19 05:10 Neut % (Auto) 67.9 % (39.0-79.0) 03/16/19 05:10 Lymph % (Auto) 22.8 % (16.0-50.0) 03/16/19 05:10 [place] % (Auto) 6.7 % (0.0-11.0) 03/16/19 05:10 Eos % (Auto) 2.2 % (0.0-6.8) 03/16/19 05:10 Baso % (Auto) 0.4 % (0.0-1.5) 03/16/19 05:10 Neut # (Auto) 7.0 # k/uL (1.4-7.7) 03/16/19 05:10 Lymph # (Auto) 2.3 # k/uL (0.6-4.0) 03/16/19 05:10 [place] # (Auto) 0.7 # k/uL (0.0-0.9) 03/16/19 05:10 Eos # (Auto) 0.2 # k/uL (0.0-0.6) 03/16/19 05:10 Baso # (Auto) 0.0 # k/uL (0.0-0.5) 03/16/19 05:10 Sodium 142 mmol/L (137-145) 03/17/19 05:45 Potassium 3.4 mmol/L (3.5-5.1) L 03/17/19 05:45 Chloride 96 mmol/L (98-107) L 03/17/19 05:45 Carbon Dioxide 38 mmol/L (22-30) H 03/17/19 05:45 BUN 50 mg/dL (9-20) H 03/17/19 05:45 Creatinine 1.25 mg/dL (0.66-1.25) 03/17/19 05:45 Estimated Creat Clear 80 03/17/19 05:45 Est GFR ( Amer) > 60 (60-) 03/17/19 05:45 Est GFR (Non-Af Amer) 58 (60-) L 03/17/19 05:45 Glucose 127 mg/dL (74-106) H 03/17/19 05:45 Calcium 10.1 mg/dL (8.4-10.2) 03/17/19 05:45 Total Bilirubin 0.9 mg/dL (0.2-1.3) 03/16/19 05:10 AST 66 U/L (15-46) H 03/16/19 05:10 ALT 34 U/L (13-69) 03/16/19 05:10 Alkaline Phosphatase 82 U/L (38-126) 03/16/19 05:10 Creatine Kinase 480 U/L (55-170) H 03/15/19 04:35 CK-MB (CK-2) 4.7 ng/mL (0.0-5.6) 03/15/19 04:35 Troponin I 0.039 ng/mL (0.012-0.034) H 03/15/19 21:20 NT-Pro-B Natriuret Pep 686.2 pg/mL (11.1-450.0) H 03/15/19 04:35 Total Protein 6.7 g/dL (6.3-8.2) 03/16/19 05:10 Albumin 3.6 g/dL (3.5-5.0) 03/16/19 05:10 Urine Color Yellow (YELLOW) 03/15/19 06:42 Urine Appearance Clear (CLEAR) 03/15/19 06:42 Urine pH 6.5 (5.0 - 8.0) 03/15/19 06:42 Ur Specific [place] 1.015 (1.010-1.030) 03/15/19 06:42 Urine Protein Negative mg/dL (NEGATIVE) 03/15/19 06:42 Urine Ketones Negative mg/dL (NEGATIVE) 03/15/19 06:42 Urine Occult Blood Negative (NEGATIVE) 03/15/19 06:42 Urine Nitrite Negative (NEGATIVE) 03/15/19 06:42 Urine Bilirubin Negative (NEGATIVE) 03/15/19 06:42 Urine Urobilinogen 0.2 Eu (0.2-1.0) 03/15/19 06:42 Ur Leukocyte Esterase Negative (NEGATIVE) 03/15/19 06:42 Urine Glucose Negative mg/dL (NEGATIVE) 03/15/19 06:42 Assessment/Plan - Assessment/Plan (1) Hypokalemia Status: Acute (2) Dehydration Status: Acute (3) Weakness Status: Acute (4) Hypothyroidism Status: Chronic Qualifiers: 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
[2019-03-18] MEDS: ISOSORBIDE DINITRATE 20 MG TABLET PO SCH (08:49)
[2019-03-18] MEDS: APIXABAN 5 MG TABLET PO SCH ×2 (08:49→20:33)
[2019-03-18] MEDS: GABAPENTIN 100 MG CAPSULE PO SCH ×2 (08:49→20:33)
[2019-03-18] MEDS: TERAZOSIN HCL 1 MG CAPSULE PO SCH (08:53)
[2019-03-18] MEDS ORDERED: POTASSIUM CHLORIDE 20 MEQ TABLET.ER PO SCH (09:00)
[2019-03-18 09:30] LABS: eGFR (Non-African) > 60
[2019-03-18] MEDS ORDERED: ISOSORBIDE DINITRATE 10 MG TABLET PO SCH (17:00)
[2019-03-18] MEDS ORDERED: TAMSULOSIN HCL 0.4 MG CAP.ER.24H PO SCH (18:00)
[2019-03-18] MEDS: MEMANTINE HCL 10 MG TABLET PO SCH (20:33)
[2019-03-18] MEDS: LOSARTAN POTASSIUM 50 MG TABLET PO SCH (20:33)
[2019-03-18] MEDS: POTASSIUM CHLORIDE 20 MEQ TABLET.ER PO SCH (20:33)
[2019-03-18] MEDS: INSULIN GLARGINE,HUM.REC.ANLOG 100 UNIT/ML PEN.INJCTR SQ SCH (20:39)
[2019-03-19] MEDS: LEVOTHYROXINE SODIUM 50 MCG TABLET PO SCH (06:20)
[2019-03-19] MEDS: INSULIN REGULAR, HUMAN 100 UNIT/ML 10ML VIAL SQ SCH ×2 (07:53→13:02)
[2019-03-19] MEDS: APIXABAN 5 MG TABLET PO SCH (08:36)
[2019-03-19] MEDS: GABAPENTIN 100 MG CAPSULE PO SCH (08:37)
[2019-03-19] MEDS: TERAZOSIN HCL 1 MG CAPSULE PO SCH (08:37)
[2019-03-19] MEDS: POTASSIUM CHLORIDE 20 MEQ TABLET.ER PO SCH (08:37)
[2019-03-19] MEDS ORDERED: ISOSORBIDE DINITRATE 20 MG TABLET PO SCH (09:00)
[2019-03-19 09:16] LABS: eGFR (Non-African) > 60
[2019-03-19 10:08] VITALS: BP 131/50
--- NOTE | 2019-03-19 11:17 | Discharge Summary ---
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 Patient is staying at home with his spouse who helps with all of his daily living cares. She states that his dementia is getting worse. He seems to have less of a sense of awareness about what is going on around him and is more confused. This has been gradual over years but over the last 2 weeks seems to have accelerated. Yesterday had had 3 episodes where he fell and was not able to get back up. Patient came to the ED and was found to be dehydrated and has hypokalemia. Patient admitted for further evaluation and treatment. Blood sugars at home have been 57-154 in AM and 200-344 in PM. Patient does have some mild hypoglycemic symptoms with BS getting into the 50s. Patient's BS yesterday was >150 all day however. He denies any chest pain pressure, has some SOB but it is stable. No fever or chills noted. Condition at Discharge: Guarded Home Medications: Ambulatory Orders Medication Instructions Recorded Multivit-Min/FA/Lycopen/Lutein 1 tab PO DAILY 11/26/15 [Centrum Silver Tablet] Thiamine HCl [B-1] 1 tab PO DAILY 11/26/15 Ergocalciferol (Vitamin D2) 1,000 unit PO BID #10 tablet 12/30/15 [Vitamin D-2] Isosorbide Mononitrate [Imdur] 30 mg PO PM 02/24/17 Colesevelam HCl (Nf) [Welchol (Nf)] 352 mg PO 6XDAY 08/04/18 Levothyroxine Sodium [Synthroid] 250 mcg PO AM 08/04/18 Memantine HCl [Namenda] 5 mg PO HS 08/04/18 Acetaminophen [Non-Aspirin Extra 500 mg PO QID #120 tablet 03/19/19 Strength] Insulin Glargine,Hum.rec.anlog 40 unit SQ HS #3 insuln.pen 03/19/19 [Lantus Solostar] Potassium Chloride [Klor-Con M20] 40 meq PO BID tablet.er 03/19/19 Terazosin HCl [Hytrin] 1 mg PO DAILY capsule 03/19/19 Torsemide [Demadex] 20 mg PO BID #60 tablet 03/19/19 Consultations this Visit: None Procedures this Visit: None Allergies/Adverse Reactions: Allergies Allergy/AdvReac Type Severity Reaction Status Date / Time metolazone Allergy Severe Mental Verified 03/18/19 10:30 Confusion acetaminophen Allergy Unknown Verified 02/24/17 07:30 allopurinol [From Zyloprim] Allergy Unknown Verified 02/24/17 07:30 alprazolam Allergy Unknown Verified 02/24/17 07:30 amoxicillin Allergy Unknown Verified 02/24/17 07:30 atorvastatin calcium Allergy Unknown Verified 02/24/17 07:30 [From Lipitor] azelastine Allergy Unknown Verified 02/24/17 07:30 bupropion HCl Allergy Unknown Verified 02/24/17 07:30 [From Wellbutrin] cephalexin Allergy Unknown Verified 02/24/17 07:30 clindamycin Allergy Unknown Verified 02/24/17 07:30 clonazepam Allergy Unknown Verified 02/24/17 07:30 clopidogrel bisulfate Allergy Unknown Verified 02/24/17 07:30 [From Plavix] codeine Allergy Unknown Verified 02/24/17 07:30 cortisone Allergy Unknown Verified 02/24/17 07:30 dexlansoprazole Allergy Unknown Verified 02/24/17 07:30 [From Dexilant] dextromethorphan HBr Allergy Unknown Verified 02/24/17 07:30 [From Guiatuss] diphenhydramine HCl Allergy Unknown Verified 02/24/17 07:30 [From Tylenol PM] divalproex sodium Allergy Unknown Verified 02/24/17 07:30 [From Depakote] duloxetine HCl Allergy Unknown Verified 02/24/17 07:30 [From Cymbalta] escitalopram oxalate Allergy Unknown Verified 02/24/17 07:30 [From Lexapro] esomeprazole magnesium Allergy Unknown Verified 02/24/17 07:30 [From Nexium] fenofibrate nanocrystallized Allergy Unknown Verified 02/24/17 07:30 [From Tricor] fenofibrate,micronized Allergy Unknown Verified 02/24/17 07:30 [From Tricor] fentanyl Allergy Unknown Verified 02/24/17 07:30 fluoxetine HCl [From Prozac] Allergy Unknown Verified 02/24/17 07:30 gabapentin Allergy Unknown Verified 02/24/17 07:30 guaifenesin [From Guiatuss] Allergy Unknown Verified 02/24/17 07:30 hydrochlorothiazide Allergy Unknown Verified 02/24/17 07:30 [From Dyazide] hydrocodone Allergy Unknown Verified 02/24/17 07:30 hydrocodone bitartrate Allergy Unknown Verified 02/24/17 07:30 [From Vicodin] hydromorphone Allergy Unknown Verified 02/24/17 07:30 ibuprofen Allergy Unknown Verified 02/24/17 07:30 meloxicam [From Mobic] Allergy Unknown Verified 02/24/17 07:30 meperidine HCl [From Demerol] Allergy Unknown Verified 02/24/17 07:30 metformin HCl Allergy Unknown Verified 02/24/17 07:30 [From Glucophage] morphine Allergy Unknown Verified 02/24/17 07:30 naproxen sodium [From Aleve] Allergy Unknown Verified 02/24/17 07:30 nebivolol HCl [From Bystolic] Allergy Unknown Verified 02/24/17 07:30 omeprazole magnesium Allergy Unknown Verified 02/24/17 07:30 [From Prilosec] oxycodone HCl [From Percocet] Allergy Unknown Verified 02/24/17 07:30 paroxetine HCl [From Paxil] Allergy Unknown Verified 02/24/17 07:30 pioglitazone HCl [From Actos] Allergy Unknown Verified 02/24/17 07:30 prasugrel HCl [From Effient] Allergy Unknown Verified 02/24/17 07:30 pravastatin sodium Allergy Unknown Verified 02/24/17 07:30 [From Pravachol] prednisone Allergy Unknown Verified 02/24/17 07:30 pregabalin [From Lyrica] Allergy Unknown Verified 02/24/17 07:30 propoxyphene HCl Allergy Unknown Verified 02/24/17 07:30 [From Darvon] pseudoephedrine HCl Allergy Unknown Verified 02/24/17 07:30 [From Guiatuss] rabeprazole sodium Allergy Unknown Verified 02/24/17 07:30 [From Aciphex] ramipril [From Altace] Allergy Unknown Verified 02/24/17 07:30 rivaroxaban [From Xarelto] Allergy Unknown Verified 02/24/17 07:30 rofecoxib [From Vioxx] Allergy Unknown Verified 02/24/17 07:30 rosiglitazone maleate Allergy Unknown Verified 02/24/17 07:30 [From Avandia] rosuvastatin calcium Allergy Unknown Verified 02/24/17 07:30 [From Crestor] salsalate Allergy Unknown Verified 02/24/17 07:30 sertraline HCl [From Zoloft] Allergy Unknown Verified 02/24/17 07:30 sibutramine HCl monohydrate Allergy Unknown Verified 02/24/17 07:30 [From Meridia] silver sulfadiazine Allergy Unknown Verified 02/24/17 07:30 [From Silvadene] synephrine Allergy Unknown Verified 02/24/17 07:30 tamsulosin Allergy Unknown Verified 02/24/17 07:30 ticagrelor Allergy Unknown Verified 02/24/17 07:30 ticlopidine HCl [From Ticlid] Allergy Unknown Verified 02/24/17 07:30 torsemide Allergy Unknown Verified 02/24/17 07:30 tramadol HCl [From Ultram] Allergy Unknown Verified 02/24/17 07:30 triamcinolone Allergy Unknown Verified 02/24/17 07:30 triamterene [From Dyazide] Allergy Unknown Verified 02/24/17 07:30 vardenafil HCl [From Levitra] Allergy Unknown Verified 02/24/17 07:30 venlafaxine HCl Allergy Unknown Verified 02/24/17 07:30 [From Effexor] warfarin sodium Allergy Unknown Verified 02/24/17 07:30 [From Coumadin] zanamivir Allergy Unknown Verified 02/24/17 07:30 [From Relenza Diskhaler] celecoxib [From Celebrex] Allergy Verified 02/24/17 07:30 clopidogrel Allergy Verified 02/24/17 07:30 hydralazine Allergy Verified 02/24/17 07:30 Penicillins Allergy Verified 02/24/17 07:30 propoxyphene Allergy Verified 02/24/17 07:30 Sulfa (Sulfonamide Allergy Verified 02/24/17 07:30 Antibiotics) tramadol Allergy Verified 02/24/17 07:30 valdecoxib Allergy Verified 02/24/17 07:30 atorvastatin AdvReac Muscle Pain Verified 02/24/17 07:30 metformin AdvReac Muscle Pain Verified 02/24/17 07:30 pravastatin AdvReac Hives Verified 02/24/17 07:30 simvastatin AdvReac Muscle Pain Verified 02/24/17 07:30 ticlopidine AdvReac Hives Verified 02/24/17 07:30 - Final Diagnosis (1) Hypokalemia Problems: improved, discharged level 3.4 (2) Dehydration Problems: improved discharges BUN/creatinine 27/1.03 (3) Weakness Problems: stable (4) Hypothyroidism Problems: Stable on home medications (5) Coronary artery disease Problems: Stable on home medications (7) Essential hypertension Problems: Stable on home medications (8) Obstructive sleep apnea Problems: stable on CPAP
--- NOTE | 2019-03-19 11:18 | Inpatient Progress Note ---
Subjective - Required Recertification Statement I anticipate X number of days because-include discharge plan: 2 days - Review of Systems Subjective: Patient states that he is not felling much better today. No specific complaints just does not feel good. Still having some urinary frequency of small amounts. No fever or chills noted. No chest pain noted. Objective - Exam Vitals and I&O: Vital Signs Temp 97.4 F L 03/19/19 10:00 Pulse 57 L 03/19/19 10:00 Resp 20 03/19/19 10:00 BP 131/50 03/19/19 10:00 Pulse Ox 94 03/19/19 10:00 Intake & Output 03/18/19 03/18/19 03/19/19 11:59 23:59 11:59 Intake Total 98 660 350 Output Total 500 175 400 Balance -402 485 -50 Intake: Oral 98 660 350 Output: Urine 500 175 400 Other: Voiding Method Indwelling Catheter Indwelling Catheter Indwelling Catheter # Bowel Movements 0 General: Alert, Oriented to Person, Oriented to Place, Oriented to Time, Cooperative Neck: Supple, No JVD Lungs: Clear to auscultation, Normal air movement, Speaks full Sentences, Respiratory Distress Cardiovascular: Regular rate, Normal S1, Normal S2, No murmurs Abdomen: Normal bowel sounds, Soft, No tenderness Neurological: Normal speech, Strength Equal Bilat, Normal tone. No: Normal gait Psych/Mental Status: Mental status NL. No: Mood NL (depressed) - Results Results: Laboratory Results WBC 10.20 K/ul (4.00-12.00) 03/16/19 05:10 RBC 3.96 M/ul (3.90-5.20) 03/16/19 05:10 Hgb 11.3 g/dL (12.0-18.0) L 03/16/19 05:10 Hct 34.8 % (37.0-53.0) L 03/16/19 05:10 MCV 88.0 fl (80.0-100.0) 03/16/19 05:10 MCH 28.6 pg (28.0-34.0) 03/16/19 05:10 MCHC 32.5 g/dL (30.0-36.0) 03/16/19 05:10 RDW 16.5 % (11.3-14.3) H 03/16/19 05:10 Plt Count 297 K/mm3 (130-400) 03/16/19 05:10 Neut % (Auto) 67.9 % (39.0-79.0) 03/16/19 05:10 Lymph % (Auto) 22.8 % (16.0-50.0) 03/16/19 05:10 [place] % (Auto) 6.7 % (0.0-11.0) 03/16/19 05:10 Eos % (Auto) 2.2 % (0.0-6.8) 03/16/19 05:10 Baso % (Auto) 0.4 % (0.0-1.5) 03/16/19 05:10 Neut # (Auto) 7.0 # k/uL (1.4-7.7) 03/16/19 05:10 Lymph # (Auto) 2.3 # k/uL (0.6-4.0) 03/16/19 05:10 [place] # (Auto) 0.7 # k/uL (0.0-0.9) 03/16/19 05:10 Eos # (Auto) 0.2 # k/uL (0.0-0.6) 03/16/19 05:10 Baso # (Auto) 0.0 # k/uL (0.0-0.5) 03/16/19 05:10 Sodium 140 mmol/L (137-145) 03/19/19 08:40 Potassium 3.4 mmol/L (3.5-5.1) L 03/19/19 08:40 Chloride 100 mmol/L (98-107) 03/19/19 08:40 Carbon Dioxide 34 mmol/L (22-30) H 03/19/19 08:40 BUN 27 mg/dL (9-20) H 03/19/19 08:40 Creatinine 1.03 mg/dL (0.66-1.25) 03/19/19 08:40 Estimated Creat Clear 97 03/19/19 08:40 Est GFR ( Amer) > 60 (60-) 03/19/19 08:40 Est GFR (Non-Af Amer) > 60 (60-) 03/19/19 08:40 Glucose 128 mg/dL (74-106) H 03/19/19 08:40 Calcium 10.1 mg/dL (8.4-10.2) 03/19/19 08:40 Total Bilirubin 0.9 mg/dL (0.2-1.3) 03/16/19 05:10 AST 66 U/L (15-46) H 03/16/19 05:10 ALT 34 U/L (13-69) 03/16/19 05:10 Alkaline Phosphatase 82 U/L (38-126) 03/16/19 05:10 Creatine Kinase 480 U/L (55-170) H 03/15/19 04:35 CK-MB (CK-2) 4.7 ng/mL (0.0-5.6) 03/15/19 04:35 Troponin I 0.018 ng/mL (0.012-0.034) 03/19/19 08:40 NT-Pro-B Natriuret Pep 686.2 pg/mL (11.1-450.0) H 03/15/19 04:35 Total Protein 6.7 g/dL (6.3-8.2) 03/16/19 05:10 Albumin 3.6 g/dL (3.5-5.0) 03/16/19 05:10 Urine Color Yellow (YELLOW) 03/15/19 06:42 Urine Appearance Clear (CLEAR) 03/15/19 06:42 Urine pH 6.5 (5.0 - 8.0) 03/15/19 06:42 Ur Specific [place] 1.015 (1.010-1.030) 03/15/19 06:42 Urine Protein Negative mg/dL (NEGATIVE) 03/15/19 06:42 Urine Ketones Negative mg/dL (NEGATIVE) 03/15/19 06:42 Urine Occult Blood Negative (NEGATIVE) 03/15/19 06:42 Urine Nitrite Negative (NEGATIVE) 03/15/19 06:42 Urine Bilirubin Negative (NEGATIVE) 03/15/19 06:42 Urine Urobilinogen 0.2 Eu (0.2-1.0) 03/15/19 06:42 Ur Leukocyte Esterase Negative (NEGATIVE) 03/15/19 06:42 Urine Glucose Negative mg/dL (NEGATIVE) 03/15/19 06:42 Assessment/Plan - Assessment/Plan (1) Hypokalemia Status: Acute Assessment: resolve K 3.8 today (2) Dehydration Status: Acute Assessment: improved (3) Weakness Status: Acute Assessment: Stable (4) Hypothyroidism Status: Chronic Qualifiers: 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
[2019-03-19] MEDS ORDERED: CHOLESTYRAMINE (WITH SUGAR) 4 GM PACKET PO SCH (12:00)
== END 2019-03-19 12:15 | DRG 641 ==
LOC: ED 04:17 → SOUTH 07:23
PROVIDERS: ADMIT Family Medicine; ATTEND Family Medicine
DX: E87.6 Hypokalemia (principal); Z68.42 Body mass index [BMI] 45.0-49.9, adult; L97.819 Non-pressure chronic ulcer of other part of right lower leg with unspecified severity; L97.829 Non-pressure chronic ulcer of other part of left lower leg with unspecified severity; E86.0 Dehydration; I87.2 Venous insufficiency (chronic) (peripheral); G47.33 Obstructive sleep apnea (adult) (pediatric); I25.10 Atherosclerotic heart disease of native coronary artery without angina pectoris; Z66 Do not resuscitate; I11.0 Hypertensive heart disease with heart failure; I50.9 Heart failure, unspecified; F03.90 Unspecified dementia, unspecified severity, without behavioral disturbance, psychotic disturbance, mood disturbance, and anxiety; M15.9 Polyosteoarthritis, unspecified; E11.649 Type 2 diabetes mellitus with hypoglycemia without coma; I45.10 Unspecified right bundle-branch block; E03.8 Other specified hypothyroidism; E06.3 Autoimmune thyroiditis; E66.9 Obesity, unspecified; E11.621 Type 2 diabetes mellitus with foot ulcer; L97.529 Non-pressure chronic ulcer of other part of left foot with unspecified severity; L97.519 Non-pressure chronic ulcer of other part of right foot with unspecified severity; N40.0 Benign prostatic hyperplasia without lower urinary tract symptoms; K44.9 Diaphragmatic hernia without obstruction or gangrene; I48.91 Unspecified atrial fibrillation; I83.018 Varicose veins of right lower extremity with ulcer other part of lower leg; I83.028 Varicose veins of left lower extremity with ulcer other part of lower leg; E11.69 Type 2 diabetes mellitus with other specified complication; Z88.6 Allergy status to analgesic agent; Z88.1 Allergy status to other antibiotic agents; Z88.5 Allergy status to narcotic agent; Z88.0 Allergy status to penicillin; Z88.2 Allergy status to sulfonamides; Z88.8 Allergy status to other drugs, medicaments and biological substances; Z79.899 Other long term (current) drug therapy; Z90.49 Acquired absence of other specified parts of digestive tract; Z91.81 History of falling; Z79.890 Hormone replacement therapy; Z90.79 Acquired absence of other genital organ(s); Z79.4 Long term (current) use of insulin; Z79.01 Long term (current) use of anticoagulants
CPT/HCPCS: 36415; 71045; 80048; 80053; 81002; 82550; 82553; 83880; 84484; 85025; 93005; 96360; 96372; 97161; 97165; 97535; 99283; 99284; A9270; J1815; J3480; J7030; J7060; S1016

== ENCOUNTER 2019-04-18 10:08 | Emergency (ER) | payer MEDICARE, OTHER ==
--- NOTE | 2019-04-18 10:14 | ED Physician Documentation ---
Male Genitourinary Problems - HISTORIAN Historian: patient - HPI Stated Complaint: cath problems Chief Complaint: Male Genitourinary Problems Onset: days ago (5) Duration: continues in ED Further Comments: yes (cath has "issues" from detention. Pt states there is "terrible pain" penis area where cath comes out) - Associated Symptoms Problems Urinating: other (due to cath no urinary issues he denies any feeling of a full bladder however he states his penis hurts ) Testicular Pain: none Testicular Swelling: none Penile Pain: Yes Penile Swelling: Yes Inguinal Mass: No Flank Pain: none Abdominal Pain: none - Sexual History Sexual History: non-contributory - ROS CONST: none GI/: denies: nausea, vomiting, abdominal pain, problems urinating - PAST HX Past History: hypertension Allergies/Adverse Reactions: Allergies Allergy/AdvReac Type Severity Reaction Status Date / Time metolazone Allergy Severe Mental Verified 04/18/19 10:29 Confusion acetaminophen Allergy Unknown Verified 04/18/19 10:29 allopurinol [From Zyloprim] Allergy Unknown Verified 04/18/19 10:29 alprazolam Allergy Unknown Verified 04/18/19 10:29 amoxicillin Allergy Unknown Verified 04/18/19 10:29 atorvastatin calcium Allergy Unknown Verified 04/18/19 10:29 [From Lipitor] azelastine Allergy Unknown Verified 04/18/19 10:29 bupropion HCl Allergy Unknown Verified 04/18/19 10:29 [From Wellbutrin] cephalexin Allergy Unknown Verified 04/18/19 10:29 clindamycin Allergy Unknown Verified 04/18/19 10:29 clonazepam Allergy Unknown Verified 04/18/19 10:29 clopidogrel bisulfate Allergy Unknown Verified 04/18/19 10:29 [From Plavix] codeine Allergy Unknown Verified 04/18/19 10:29 cortisone Allergy Unknown Verified 04/18/19 10:29 dexlansoprazole Allergy Unknown Verified 04/18/19 10:29 [From Dexilant] dextromethorphan HBr Allergy Unknown Verified 04/18/19 10:29 [From Guiatuss] diphenhydramine HCl Allergy Unknown Verified 04/18/19 10:29 [From Tylenol PM] divalproex sodium Allergy Unknown Verified 04/18/19 10:29 [From Depakote] duloxetine HCl Allergy Unknown Verified 04/18/19 10:29 [From Cymbalta] escitalopram oxalate Allergy Unknown Verified 04/18/19 10:29 [From Lexapro] esomeprazole magnesium Allergy Unknown Verified 04/18/19 10:29 [From Nexium] fenofibrate nanocrystallized Allergy Unknown Verified 04/18/19 10:29 [From Tricor] fenofibrate,micronized Allergy Unknown Verified 04/18/19 10:29 [From Tricor] fentanyl Allergy Unknown Verified 04/18/19 10:29 fluoxetine HCl [From Prozac] Allergy Unknown Verified 04/18/19 10:29 gabapentin Allergy Unknown Verified 04/18/19 10:29 guaifenesin [From Guiatuss] Allergy Unknown Verified 04/18/19 10:29 hydrochlorothiazide Allergy Unknown Verified 04/18/19 10:29 [From Dyazide] hydrocodone Allergy Unknown Verified 04/18/19 10:29 hydrocodone bitartrate Allergy Unknown Verified 04/18/19 10:29 [From Vicodin] hydromorphone Allergy Unknown Verified 04/18/19 10:29 ibuprofen Allergy Unknown Verified 04/18/19 10:29 meloxicam [From Mobic] Allergy Unknown Verified 04/18/19 10:29 meperidine HCl [From Demerol] Allergy Unknown Verified 04/18/19 10:29 metformin HCl Allergy Unknown Verified 04/18/19 10:29 [From Glucophage] morphine Allergy Unknown Verified 04/18/19 10:29 naproxen sodium [From Aleve] Allergy Unknown Verified 04/18/19 10:29 nebivolol HCl [From Bystolic] Allergy Unknown Verified 04/18/19 10:29 omeprazole magnesium Allergy Unknown Verified 04/18/19 10:29 [From Prilosec] oxycodone HCl [From Percocet] Allergy Unknown Verified 04/18/19 10:29 paroxetine HCl [From Paxil] Allergy Unknown Verified 04/18/19 10:29 pioglitazone HCl [From Actos] Allergy Unknown Verified 04/18/19 10:29 prasugrel HCl [From Effient] Allergy Unknown Verified 04/18/19 10:29 pravastatin sodium Allergy Unknown Verified 04/18/19 10:29 [From Pravachol] prednisone Allergy Unknown Verified 04/18/19 10:29 pregabalin [From Lyrica] Allergy Unknown Verified 04/18/19 10:29 propoxyphene HCl Allergy Unknown Verified 04/18/19 10:29 [From Darvon] pseudoephedrine HCl Allergy Unknown Verified 04/18/19 10:29 [From Guiatuss] rabeprazole sodium Allergy Unknown Verified 04/18/19 10:29 [From Aciphex] ramipril [From Altace] Allergy Unknown Verified 04/18/19 10:29 rivaroxaban [From Xarelto] Allergy Unknown Verified 04/18/19 10:29 rofecoxib [From Vioxx] Allergy Unknown Verified 04/18/19 10:29 rosiglitazone maleate Allergy Unknown Verified 04/18/19 10:29 [From Avandia] rosuvastatin calcium Allergy Unknown Verified 04/18/19 10:29 [From Crestor] salsalate Allergy Unknown Verified 04/18/19 10:29 sertraline HCl [From Zoloft] Allergy Unknown Verified 04/18/19 10:29 sibutramine HCl monohydrate Allergy Unknown Verified 04/18/19 10:29 [From Meridia] silver sulfadiazine Allergy Unknown Verified 04/18/19 10:29 [From Silvadene] synephrine Allergy Unknown Verified 04/18/19 10:29 tamsulosin Allergy Unknown Verified 04/18/19 10:29 ticagrelor Allergy Unknown Verified 04/18/19 10:29 ticlopidine HCl [From Ticlid] Allergy Unknown Verified 04/18/19 10:29 torsemide Allergy Unknown Verified 04/18/19 10:29 tramadol HCl [From Ultram] Allergy Unknown Verified 04/18/19 10:29 triamcinolone Allergy Unknown Verified 04/18/19 10:29 triamterene [From Dyazide] Allergy Unknown Verified 04/18/19 10:29 vardenafil HCl [From Levitra] Allergy Unknown Verified 04/18/19 10:29 venlafaxine HCl Allergy Unknown Verified 04/18/19 10:29 [From Effexor] warfarin sodium Allergy Unknown Verified 04/18/19 10:29 [From Coumadin] zanamivir Allergy Unknown Verified 04/18/19 10:29 [From Relenza Diskhaler] celecoxib [From Celebrex] Allergy Verified 04/18/19 10:29 clopidogrel Allergy Verified 04/18/19 10:29 hydralazine Allergy Verified 04/18/19 10:29 Penicillins Allergy Verified 04/18/19 10:29 propoxyphene Allergy Verified 04/18/19 10:29 Sulfa (Sulfonamide Allergy Verified 04/18/19 10:29 Antibiotics) tramadol Allergy Verified 04/18/19 10:29 valdecoxib Allergy Verified 04/18/19 10:29 atorvastatin AdvReac Muscle Pain Verified 04/18/19 10:29 metformin AdvReac Muscle Pain Verified 04/18/19 10:29 pravastatin AdvReac Hives Verified 04/18/19 10:29 simvastatin AdvReac Muscle Pain Verified 04/18/19 10:29 ticlopidine AdvReac Hives Verified 04/18/19 10:29 Home Medications: Ambulatory Orders Medication Instructions Recorded Multivit-Min/FA/Lycopen/Lutein 1 tab PO DAILY 11/26/15 [Centrum Silver Tablet] Thiamine HCl [B-1] 1 tab PO DAILY 11/26/15 Ergocalciferol (Vitamin D2) 1,000 unit PO BID #10 tablet 12/30/15 [Vitamin D-2] Isosorbide Mononitrate [Imdur] 30 mg PO PM 02/24/17 Colesevelam HCl (Nf) [Welchol (Nf)] 352 mg PO 6XDAY 08/04/18 Levothyroxine Sodium [Synthroid] 250 mcg PO AM 08/04/18 Memantine HCl [Namenda] 5 mg PO HS 08/04/18 Acetaminophen [Non-Aspirin Extra 500 mg PO QID #120 tablet 03/19/19 Strength] Insulin Glargine,Hum.rec.anlog 40 unit SQ HS #3 insuln.pen 03/19/19 [Lantus Solostar] Potassium Chloride [Klor-Con M20] 40 meq PO BID tablet.er 03/19/19 Terazosin HCl [Hytrin] 1 mg PO DAILY capsule 03/19/19 Torsemide [Demadex] 20 mg PO BID #60 tablet 03/19/19 - SOCIAL HX Smoking History: non-smoker Alcohol Use: none Drug Use: none - FAMILY HX Family History: none - VITAL SIGNS Vital Signs: Vital Signs Temp Pulse Resp BP Pulse Ox 97.6 F 54 L 20 110/55 97 04/18/19 10:09 04/18/19 11:39 04/18/19 11:39 04/18/19 11:39 04/18/19 11:39 - REVIEWED ASSESSMENTS Nursing Assessment Reviewed: Yes Vitals Reviewed: Yes Progress - Progress Progress: 1025: Discussed case with Dr Serrano and he is asking Lidocaine topical placed on area and he will call and discuss issue with ME SATHISH ED Results Lab/Radiology - Orders Orders: ED Orders Category Date Time Status Lidocaine 2% Viscous [Xylocaine 2% Viscous] Med 04/18/19 10:28 Discontinued 15 ml MM NOW ONE Male Genitourinary Problems - EXAM General Appearance: no acute distress, alert Abdomen: non-tender Genitals: other (swelling and tip of penis also errosion area on posterior to penis at meatus ) EENT: eye inspection normal, no signs of dehydration Respiratory: no resp distress, chest non-tender, breath sounds normal CVS: reg rate & rhythm, heart sounds normal Back: non-tender Rectal: non-tender Extremities: other (bilateral lower legs with rash - he reports is always there ) Neuro/Psych: oriented X3 Skin: warm/dry, other (skin tear right knee red and open with bandage ) Discharge Clincal Impression: Penis abrasion Qualifiers: Encounter type: initial encounter Qualified Code(s): S30.812A - Abrasion of penis, initial encounter Referrals: Tolu Serrano MD [Primary Care Provider] - 2 Days Comments: 1. Continue antibiotic 2. WATCH THE POSITION OF THE URINARY CATH 3. Follow up with Dr Srerano 4. Return to ER for any increasing concerns Condition: Stable Disposition: 01 HOME, SELF-CARE Decision to Admit: NO Date of Decison to Admit: 04/18/19 Decision Time: 10:58
[2019-04-18 11:41] VITALS: BP 110/55
== END 2019-04-18 11:33 | disposition home or self-care (01) ==
LOC: ED 10:08
DX: S30.812A Abrasion of penis, initial encounter (principal); X58.XXXA Exposure to other specified factors, initial encounter; Y99.8 Other external cause status
CPT/HCPCS: 99282; A9270-GY